=== PATIENT | female | born 1970 | race Caucasian/White ===

== ENCOUNTER → 2021-07-01 08:21 | Outpatient (CLI) | payer BC, SELFPAY ==
[2021-07-01 19:08] LABS: Alanine Aminotransferase 26 IU/L (<35); Albumin 4.3 g/dL (3.5-5.0); Albumin Globulin Ratio 1.4 (1.0-2.8); Alkaline Phosphatase 101 U/L (38-126); Aspartate Aminotransferase 28 IU/L (14-36); BUN Creatinine Ratio 24.2 (6-22); Bilirubin Total 0.5 mg/dL (0.2-1.3); Blood Urea Nitrogen 16 mg/dL (7-17); Calcium 9.9 mg/dL (8.4-10.2); Carbon Dioxide 26 mmol/L (22-32); Chloride 103 mmol/L (98-107); Cholesterol 248 mg/dL (140-199); Estimated Glomerular Filt Rate > 60.0 mL/min (>60); Globulin 3.1 g/dL (1.7-4.1); Glucose 100 mg/dL (70-100); HDL Cholesterol 73 mg/dL (40-60); HEMOLYSIS < 15 (0-50); LDL Cholesterol Calculated 137 mg/dL (<100); Potassium 4.6 mmol/L (3.4-5.1); Sodium 138 mmol/L (137-145); Total Protein 7.4 g/dL (6.3-8.2); Triglycerides 188 mg/dL (35-150)
[2021-07-01 19:20] LABS: Vitamin D 25 Hydroxy (D3) 19.2 ng/mL (30.0-100.0)
[2021-07-01 19:21] LABS: Follicle Stimulating Hormone 49.2 mIU/mL; Luteinizing Hormone 22.4 mIU/mL
[2021-07-01 19:36] LABS: TSH w/ Reflex to FT4 3.23 uIU/mL (0.47-4.68)
== END ==
PROVIDERS: PCP Physician Assistant Medical; Visit Provider Physician Assistant Medical
DX: D64.9 Anemia, unspecified (principal); M17.10 Unilateral primary osteoarthritis, unspecified knee; N95.1 Menopausal and female climacteric states; R73.9 Hyperglycemia, unspecified; R79.89 Other specified abnormal findings of blood chemistry; Z13.0 Encounter for screening for diseases of the blood and blood-forming organs and certain disorders involving the immune mechanism; Z13.228 Encounter for screening for other metabolic disorders; Z13.29 Encounter for screening for other suspected endocrine disorder
CPT/HCPCS: 80053; 80061; 82306; 83001; 83002; 84443

== ENCOUNTER → 2021-07-05 09:48 | Outpatient (CLI) | payer BC, SELFPAY ==
[2021-07-05 20:15] LABS: Add Manual Diff / Slide Review NO; Basophils Absolute Auto 0 /uL (0-100); Eosinophils Absolute Auto 100 /uL (0-450); Eosinophils Percent Auto 2.6 % (2-4); Hematocrit 42.3 % (36-46); Hemoglobin 14.2 g/dL (12.0-16.0); Lymphocytes Absolute Auto 1200 /uL (1100-4500); Lymphocytes Percent Auto 23.2 % (25-40); Mean Corpuscular HGB Conc 33.6 % (30-36); Mean Corpuscular Hemoglobin 29.9 PG (26-34); Mean Corpuscular Volume 88.9 fL (80-100); Monocytes Absolute Auto 500 /uL (0-900); Monocytes Percent Auto 9.7 % (3-14); Neutrophils Absolute Auto 3200 /uL (1500-7000); Neutrophils Percent Auto 63.5 % (50-75); Platelet Count 278 X10^3/uL (150-400); Red Blood Cell Count 4.76 X10^6/uL (4.0-5.2); Red Cell Distribution Width 12.8 % (11.6-14.8)
[2021-07-05 20:40] LABS: Hemoglobin A1C% w Est Avg Glu 5.4 % (4.0-6.0)
== END ==
PROVIDERS: PCP Physician Assistant Medical; Visit Provider Physician Assistant Medical
DX: D64.9 Anemia, unspecified (principal); M17.10 Unilateral primary osteoarthritis, unspecified knee; N95.1 Menopausal and female climacteric states; R73.9 Hyperglycemia, unspecified; R79.89 Other specified abnormal findings of blood chemistry; Z13.0 Encounter for screening for diseases of the blood and blood-forming organs and certain disorders involving the immune mechanism; Z13.228 Encounter for screening for other metabolic disorders; Z13.29 Encounter for screening for other suspected endocrine disorder
CPT/HCPCS: 83036; 85025

== ENCOUNTER → 2021-10-14 09:15 | Outpatient (CLI) | payer BC, SELFPAY ==
[2021-10-14 20:39] LABS: COVID19 - ORCAS (NP or Nasal) Negative (Negative)
== END ==
PROVIDERS: PCP Physician Assistant Medical; Referring Provider Family Medicine; Visit Provider Family Medicine
DX: Z20.822 Contact with and (suspected) exposure to COVID-19 (principal)
CPT/HCPCS: U0003

== ENCOUNTER → 2021-11-29 13:24 | Outpatient (CLI) | payer BC, SELFPAY ==
--- NOTE | 2021-11-29 | DI.MRI.S_ITS ---
PROCEDURE: MR ANKLE LT WO CON INDICATIONS: Pain in right ankle and joints of right foot TECHNIQUE: Noncontrast sagittal T1 spin echo and T2 fast spin echo with fat saturation, axial proton density fast spin echo and T2 fast spin echo with fat saturation, coronal T1 spin echo and T2 fast spin echo with fat saturation through the ankle/hindfoot. COMPARISON: None. FINDINGS: Image quality: Excellent. Bones and joints: No bone marrow contusions or fractures. 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 No osteochondral injuries of the talar dome. No pathologic joint effusions. Medial structures: The posterior tibialis, flexor digitorum longus, and flexor hallucis longus tendons are intact. The posterior tibial neurovascular bundle appears normal within the tarsal tunnel, without extrinsic mass effect. The deltoid and spring are intact. Lateral structures: The anterior talofibular, calcaneofibular, and posterior talofibular ligaments appear intact. More superiorly, the anterior and posterior tibiofibular ligaments appear intact, as is the intermalleolar ligament. The tibiofibular syndesmosis is normal in width at 2 mm or less. The peroneus longus and brevis tendons demonstrate normal location and morphology. Adjacent bony peroneal tubercle and retrotrochlear prominence are normal in size. The sinus tarsi demonstrates normal fatty signal, without edema, fibrosis, or cyst formation. Visualized sinus tarsi components (cervical ligament, interosseous talocalcaneal ligament, roots of the inferior extensor retinaculum) appear normal. Anterior structures: The tibialis anterior, extensor hallucis longus, and extensor digitorum longus tendons appear intact. Posterior and plantar structures: Achilles tendon is intact. Medial and lateral bands of the plantar fascia are of normal thickness. No abductor digiti quinti muscle atrophy to suggest Cherry neuropathy. IMPRESSION: 1. Non osseous calcaneonavicular coalition. Dictated by: Trenton Modi M.D. on 11/29/2021 at 14:44 Approved by: Trenton Modi M.D. on 11/29/2021 at 14:54
== END ==
PROVIDERS: PCP Physician Assistant Medical; Referring Provider Physician Assistant; Visit Provider Physician Assistant
DX: M25.571 Pain in right ankle and joints of right foot (principal)
CPT/HCPCS: 73721

== ENCOUNTER → 2022-04-01 08:08 | Outpatient (CLI) | payer BC, SELFPAY ==
[2022-04-01 20:34] LABS: COVID19 - ORCAS (NP or Nasal) Negative (Negative)
== END ==
PROVIDERS: PCP Physician Assistant Medical; Visit Provider Physician Assistant
DX: Z20.822 Contact with and (suspected) exposure to COVID-19 (principal)
CPT/HCPCS: U0003

== ENCOUNTER → 2022-08-21 13:25 | Outpatient (CLI) | payer BC, SELFPAY ==
[2022-08-21 19:28] LABS: Hemoglobin A1C% w Est Avg Glu 5.5 % (4.0-6.0)
[2022-08-21 19:30] LABS: BUN Creatinine Ratio 19.1 (6-22); Blood Urea Nitrogen 13 mg/dL (7-17); Calcium 9.8 mg/dL (8.4-10.2); Carbon Dioxide 27 mmol/L (22-32); Chloride 98 mmol/L (98-107); Cholesterol 199 mg/dL (140-199); Estimated Glomerular Filt Rate > 60 mL/min (>60); Glucose 87 mg/dL (70-100); HDL Cholesterol 74 mg/dL (40-60); HEMOLYSIS < 15 (0-50); LDL Cholesterol Calculated 100 mg/dL (<100); Sodium 136 mmol/L (137-145); Triglycerides 124 mg/dL (35-150)
[2022-08-21 19:52] LABS: Thyroid Stimulating Hormone 2.99 uIU/mL (0.47-4.68)
== END ==
PROVIDERS: PCP Physician Assistant Medical; Visit Provider Physician Assistant Medical
DX: R73.9 Hyperglycemia, unspecified (principal); Z13.0 Encounter for screening for diseases of the blood and blood-forming organs and certain disorders involving the immune mechanism; Z13.228 Encounter for screening for other metabolic disorders; Z13.29 Encounter for screening for other suspected endocrine disorder
CPT/HCPCS: 80048; 80061; 82570; 83036; 84443

== ENCOUNTER → 2022-09-05 06:58 | Outpatient (CLI) | payer BC, SELFPAY ==
[2022-09-05 19:41] LABS: COVID19 - ORCAS (NP or Nasal) Negative (Negative)
== END ==
PROVIDERS: PCP Physician Assistant Medical; Visit Provider Family Medicine
DX: Z20.822 Contact with and (suspected) exposure to COVID-19 (principal); Z01.812 Encounter for preprocedural laboratory examination
CPT/HCPCS: U0003

== ENCOUNTER 2022-09-07 11:36 | Emergency (ER) | payer BC, SELFPAY ==
[2022-09-07 11:52] VITALS: BP 153/82; PULSE 67; RESP 16; TEMP 36.4; O2SAT 100; BMI 35.5
--- NOTE | 2022-09-07 11:56 | DI.RAD.S_ITS ---
PROCEDURE: XR KNEE RT 3V INDICATIONS: fall down 4 steps TECHNIQUE: 3 views of the knee were acquired. COMPARISON: [facility], CR, XR ANKLE LT MIN 3V, 09/07/2022, 12:07. FINDINGS: Bones: No fractures or dislocations. No suspicious bony lesions. There is mild medial and lateral femorotibial joint space narrowing seen, with associated remodeling changes including subchondral sclerosis and osteophyte formation along the jointline. On the sunrise view, there is mild lateral patellofemoral joint space narrowing seen. Osteophyte formation can be seen along the margins of the patella. Soft tissues: There is a fppy-ti-ealuvkkb joint effusion. No suspicious soft tissue calcifications. IMPRESSION: Generalized degenerative changes are seen, without an acute bony abnormality seen by plain film. Jrnb-vm-rinvowil joint effusion. If it would be helpful for clinical management decision making, please consider a dedicated, scheduled knee MRI for further evaluation (assuming that there is no contraindication). Dictated by: Andrew Martin M.D. on 09/07/2022 at 11:40 Approved by: Andrew Martin M.D. on 09/07/2022 at 11:41
--- NOTE | 2022-09-07 11:56 | DI.RAD.S_ITS ---
PROCEDURE: XR ANKLE LT MIN 3V INDICATIONS: fall down 4 steps TECHNIQUE: 3 views of the ankle were acquired. COMPARISON: [facility], MR, MR ANKLE LT WO CON, 11/29/2021, 13:35. [facility], CR, XR KNEE RT 3V, 09/07/2022, 12:07. [facility], CR, XR ANKLE 3+ VIEWS LEFT, 07/04/2021, 12:55. FINDINGS: Bones: No fractures or dislocations. Ankle mortise is normally aligned. No suspicious bony lesions. The talar dome demonstrates no willy abnormality. Incidental note is made of a moderate enthesophyte at the Achilles insertion. Soft tissues: Generalized soft tissue swelling is seen. IMPRESSION: Soft tissue swelling is seen, without an acute bony abnormality seen by plain film. If there is point tenderness (or other clinical suspicion for a fracture not seen on these images) then a dedicated CT or a short-term followup plain film series could be considered for further evaluation, as clinically appropriate. Dictated by: Andrew Martin M.D. on 09/07/2022 at 11:41 Approved by: Andrew Martin M.D. on 09/07/2022 at 11:42
--- NOTE | 2022-09-07 16:13 | ED_ITS ---
HPI - Extremity Injury (Lower) <John Rushing PA-C - Last Filed: 09/07/22 16:26> General Chief Complaint: Extremity Injury, Lower Stated Complaint: fell down steps yesterday lt ankle rt knee Time Seen by Provider: 09/07/22 15:52 History of Present Illness HPI Narrative: Patient is a 52 old female presents to the emergency complaint right left ankle started after she fell down some stairs yesterday at about 3:00 p.m.. States she was walking towards the stairs and fell forward. She continues to left ankle pain. States she was taking Tylenol for the pain. Not taken ibuprofen or naproxen because she is on blood thinners. States the pain is worse pressure towards the pain is made better when she does not to the area does not talk. Describes pain as pain above at this. Denies any other concerns at this. Related Data Home Medications Medication Instructions Recorded Confirmed estradiol 0.05 mg/24 hr weekly 1 patch transdermal 2XW 07/11/22 07/11/22 transdermal patch Previous Rx's Medication Instructions Recorded sumatriptan 5 mg/actuation nasal 5 mg intranasal Q2-4H PRN migraine 10/09/21 spray (Imitrex) headache #6 ea escitalopram oxalate 10 mg tablet 10 mg PO DAILY 90 days #90 tabs 06/12/22 methocarbamol 750 mg tablet 750 mg PO Q8H #10 tabs 09/07/22 Allergies Allergy/AdvReac Type Severity Reaction Status Date / Time acetaminophen [From Vicodin] Allergy Severe itchy skin Verified 03/28/22 09:13 hydrocodone [From Vicodin] Allergy Severe itchy skin Verified 03/28/22 09:13 Penicillins Allergy Severe swollen Verified 03/28/22 09:13 Review of Systems <John Rushing PA-C - Last Filed: 09/07/22 16:26> Review of Systems Narrative: R.O.S.: General: No fever, chills or fatigue. Cardiovascular: No chest pain or palpitations Respiratory: No S.O.B. HEENT: No congestion, ear pain, rhinorrhea, sore throat or tinnitus Gastrointestinal: No nausea or vomiting : No urinary concerns Skin: No rash or associated abnormalities Musculoskeletal: Right knee left ankle pain? Neurological: Awake, alert and in not apparent distress. No Headaches, changes in vision or other related neurological concerns. Patient History <John Rushing PA-C - Last Filed: 09/07/22 16:26> Medical History (Updated 09/07/22 @ 16:22 by John Rushing PA-C) Breast cancer (~2004) Gastric ulcer (~2018) Irregular menstrual cycle Ovarian cyst Painful menstrual periods Surgical History (Updated 06/04/21 @ 16:24 by Katerina Jasso RN) Anesthesia History of hysterectomy (~11/2019) History of knee surgery History of mastectomy Family History (Updated 04/20/21 @ 20:49 by Myla Edwards) Mother Hypertension Hyperlipidemia Grandmother Cancer History of heart disease Social History Smoking Status: Never smoker Smoking Status: Never smoker Exam <John Rushing PA-C - Last Filed: 09/07/22 16:26> Narrative Exam Narrative: Physical Exam: ? General: normal appearance, well developed, well nourished, alert, and awake. Not in acute distress. ? Head: Normocephalic, no lesions. Chest: Lungs CTAB, no rales, rhonchi or wheezes. ?? Heart: RRR, no murmurs, rubs or gallops. Eyes: PERRLA, EOM's full, conjunctivae clear. ? Neuro: Physiological, no localizing findings, CN3-12 intact. ?? Extremities: Patient is tender to palpation medial anterior knee area. Patient also pain to palpation the medial area left ankle. Minimal swelling very erythema. Skin: Normal, no rashes, no lesions noted. ?? PSYCHIATRIC: The mood is good, no blunted affect. Speech is clear. Thought process is linear, thought content is appropriate. The voice is without significant inflection. Gastrointestinal: Soft; NT; ND; Pos BS with Neg. rebound tenderness. No scars or major deformities noted on Visual Inspection. Initial Vital Signs Initial Vital Signs: Vital Signs Temperature 97.5 F L 09/07/22 11:52 Pulse Rate 67 09/07/22 11:52 Respiratory Rate 16 09/07/22 11:52 Blood Pressure 153/82 H 09/07/22 11:52 Pulse Oximetry 100 09/07/22 11:52 Oxygen Delivery Method 09/07/22 11:52 <Alexandria Gross DO - Last Filed: 09/08/22 07:09> Initial Vital Signs Initial Vital Signs: Vital Signs Temperature 97.5 F L 09/07/22 11:52 Pulse Rate 67 09/07/22 11:52 Respiratory Rate 16 09/07/22 11:52 Blood Pressure 153/82 H 09/07/22 11:52 Pulse Oximetry 100 09/07/22 11:52 Oxygen Delivery Method 09/07/22 11:52 Course <John Rushing PA-C - Last Filed: 09/07/22 16:26> Orders Ordered: ED Orders 09/07/22 11:56 XR ankle LT min 3V Stat XR knee RT 3V Stat Vital Signs Vital signs: Vital Signs - 8 hr 09/07/22 11:52 Temperature 97.5 F L Pulse Rate 67 Respiratory Rate 16 Blood Pressure 153/82 H Pulse Oximetry 100 Oxygen Delivery Method Room Air <Alexandria Gross DO - Last Filed: 09/08/22 07:09> Orders Ordered: ED Orders 09/07/22 11:56 XR ankle LT min 3V Stat XR knee RT 3V Stat Vital Signs Vital signs: Vital Signs - 8 hr 09/07/22 11:52 Temperature 97.5 F L Pulse Rate 67 Respiratory Rate 16 Blood Pressure 153/82 H Pulse Oximetry 100 Oxygen Delivery Method Room Air MDM - Extremity Injury (Lower) <John Rushing PA-C - Last Filed: 09/07/22 16:26> Imaging Data Extremity x-ray #1: Radiologist's Impression: [address] [address] XRay Report Signed Patient: Rachel Alexander MR#: [id number] : 1970 Acct:[id number] Age/Sex: 52 / F Date of Service: 09/07/22 Loc: ED Accession Number: [id number] ?? Procedure: XR knee RT 3V Ordering Provider: Alexandria Gross D.O. PROCEDURE:? XR KNEE RT 3V ? INDICATIONS:? fall down 4 steps ? TECHNIQUE:? 3 views of the knee were acquired.? ? COMPARISON:? [facility], CR, XR ANKLE LT MIN 3V, 09/07/2022, 12:07. ? FINDINGS:? ? Bones:? No fractures or dislocations.? No suspicious bony lesions.? ? There is mild medial and lateral femorotibial joint space narrowing seen, with associated remodeling changes including subchondral sclerosis and osteophyte formation along the jointline.? On the sunrise view, there is mild lateral patellofemoral joint space narrowing seen. Osteophyte formation can be seen along the margins of the marina lla. ? Soft tissues:? There is a oxte-nd-rngwtzla joint effusion.? No suspicious soft tissue calcifications.? ? ? IMPRESSION:? Generalized degenerative changes are seen, without an acute bony abnormality seen by plain film. ? Qujz-uj-rzfwpfoq joint effusion.? ? If it would be helpful for clinical management decision making, please consider a dedicated, scheduled knee MRI for further evaluation (assuming that there is no contraindication).? Dictated by: Andrew Martin M.D. on 09/07/2022 at 11:40 ? ? Approved by: Andrew Martin M.D. on 09/07/2022 at 11:41 ? Extremity x-ray #2: Radiologist's Impression: [address] [address] XRay Report Signed Patient: Rachel Alexander MR#: [id number] : 1970 Acct:[id number] Age/Sex: 52 / F Date of Service: 09/07/22 Loc: ED Accession Number: [id number] ?? Procedure: XR ankle LT min 3V Ordering Provider: Alexandria Gross D.O. PROCEDURE:? XR ANKLE LT MIN 3V ? INDICATIONS:? fall down 4 steps ? TECHNIQUE:? 3 views of the ankle were acquired.? ? COMPARISON:? [facility], MR, MR ANKLE LT WO CON, 11/29/2021, 13:35.? [facility], CR, XR KNEE RT 3V, 09/07/2022, 12:07.? [facility], CR, XR ANKLE 3+ VIEWS LEFT, 07/04/2021, 12:55. ? FINDINGS:? ? Bones:? No fractures or dislocations.? Ankle mortise is normally aligned.? No suspicious bony lesions.? The talar dome demonstrates no willy abnormality.? Incidental note is made of a moderate enthesophyte at the Achilles insertion. ? Soft tissues:? Generalized soft tissue swelling is seen. ? ? IMPRESSION:? Soft tissue swelling is seen, without an acute bony abnormality seen by plain film. ? If there is point tenderness (or other clinical suspicion for a fracture not seen on these images) then a dedicated CT or a short-term followup plain film series could be considered for further evaluation, as clinically appropriate. ? Dictated by: Andrew Martin M.D. on 09/07/2022 at 11:41 ? ? Approved by: Andrew Martin M.D. on 09/07/2022 at 11:42 ? MDM Narrative Medical decision making narrative: Patient emergency complaint of continued pain in the right knee after she fell yesterday. X-ray was fracture the patient is still concerned possible ligamental injury. He was placed in patient ortho Discharge Plan Departure Patient Disposition: Home Clinical Impression: Ankle pain, left, Acute pain of right knee Instructions: DI for Knee Sprain, DI for Ankle Sprain Activity Restrictions/Additional Instructions: *You have been diagnosed with and right ankle sprains. Ordered medication to help with the pain and referral to orthopedics. The orthopedic provider. #[phone]. I suggested reach out to the orthopedic office early next week. I also suggest you continue to ice and elevate the extremities. [ ] *What to do: *Please continue to take your regular medications as directed. [ ] New medication prescriptions sent to your pharmacy: [ ] [x] New medication written as a paper prescription [ ] No new medications given *Please follow up with your primary care provider in 2-3 days, call for an appointment. Let them know you were seen in the Emergency Department and that we ask that you be seen in follow up. We will electronically transmit a record of today's note if your PCP is in our system *If you do not have a primary care provider please contact the [facility] Resource line at [phone]. They will ask some questions about your medical history and help get you set up with a doctor in the community. *Return to Emergency Department if you should have any new, worsening or concerning symptoms, such as [fever greater than 101 F, shaking chills, worsening pain, persistent vomiting or other bothersome symptoms] Prescriptions: New methocarbamol 750 mg tablet 750 mg PO Q8H Qty: 10 0RF No Action escitalopram oxalate 10 mg tablet 10 mg PO DAILY 90 Days Qty: 90 3RF estradiol 0.05 mg/24 hr patch weekly 1 patch transdermal 2XW sumatriptan [Imitrex] 5 mg/actuation spray,non-aerosol 5 mg intranasal Q2-4H PRN (Reason: migraine headache) Qty: 6 0RF Rx Instructions: into each nostril once; if headache remains, may repeat total dose once after at least 2 hours Referrals: Kristen Kelly MD [Physician] - Martha Stephens PA-C [Primary Care Provider] - Visit Report Forms: Patient Portal/API <Alexandria Grsos DO - Last Filed: 09/08/22 07:09> Cosign ED Attending Silviaature Attestation: I was immediately available in the department for consultation. Documentation has been reviewed.
[2022-09-07 17:05] VITALS: BP 150/80; PULSE 69; RESP 18; O2SAT 97
== END 2022-09-07 17:05 | disposition home or self-care (01) ==
PROVIDERS: Emergency Provider Physician Assistant; PCP Physician Assistant Medical
DX: M25.572 Pain in left ankle and joints of left foot (principal); M25.561 Pain in right knee; W10.9XXA Fall (on) (from) unspecified stairs and steps, initial encounter
CPT/HCPCS: 73562; 73610; 99282; 99283

== ENCOUNTER → 2022-09-13 14:52 | Outpatient (CLI) | payer BC, SELFPAY ==
--- NOTE | 2022-09-13 14:54 | DI.MRI.S_ITS ---
PROCEDURE: MR KNEE RT WO CON INDICATIONS: Sprain of unspecified site of right knee, initial TECHNIQUE: Noncontrast sagittal PD fast spin echo and T2 fast spin echo with fat saturation, sagittal 3-D FLASH with fat saturation; coronal T1 spin echo and PD fast spin echo with fat saturation, and axial PD fast spin echo with fat saturation through the knee. COMPARISON: None. FINDINGS: Image quality: Excellent. Menisci: Oblique tear involving posterior horn of medial meniscus is seen extending to inferior articulating surface. Complex tear involving anterior horn of lateral meniscus is also noted extending to both superior and inferior articulating surfaces. Peripheral displacement of medial and lateral menisci bowing adjacent collateral ligaments is seen. The meniscal root ligaments appear intact. Cruciate ligaments: Myxoid degenerative changes involving anterior cruciate ligament is seen. No full-thickness ACL rupture. PCL is intact. Medial structures: Low to moderate grade MCL sprain/partial-thickness tear is noted. The posterior oblique ligament, semimembranosus tendon insertions, oblique popliteal ligament, and meniscocapsular junction appear intact. Visualized portions of the pes anserinus tendons appear normal. No abnormal bursal fluid. Lateral structures: Moderate grade lateral collateral ligament sprain/partial-thickness tear near its femoral insertion is seen. The long and short heads of the biceps femoris tendon appear intact. The popliteus tendon appears normal; the popliteofibular ligament appears intact. Iliotibial band appears normal. Anterior structures: The quadriceps and patellar tendons appear intact. Patellar alignment is normal. No femoral trochlear dysplasia or ventral trochlear prominence. No edema in the infrapatellar fat pad. Bones and cartilage: No bone marrow contusions or fractures. Moderate tricompartmental osteoarthritis and chondromalacia is noted with joint space narrowing, subchondral sclerosis and marginal osteophyte formation. Joint space: There is moderate joint effusion, no gross loose bodies. No Petty's cyst. Normal appearing synovial plicae are incidentally noted. IMPRESSION: 1. Complex tear involving anterior horn of lateral meniscus extending to both superior and inferior articulating surfaces. Oblique tear involving posterior horn of medial meniscus extending to inferior articulating surface. 2. Myxoid degenerative changes in anterior cruciate ligament, no full-thickness ACL rupture. PCL is intact. 3. Moderate MCL and LCL sprain/partial-thickness tear. 4. Moderate tricompartmental osteoarthritis and chondromalacia. No fracture or dislocation. Moderate joint effusion, no gross loose bodies. Dictated by: Bart Atkins M.D. on 09/15/2022 at 8:34 Approved by: Bart Atkins M.D. on 09/15/2022 at 8:38
== END ==
PROVIDERS: PCP Physician Assistant Medical; Referring Provider Physician Assistant; Visit Provider Physician Assistant
DX: S83.271A Complex tear of lateral meniscus, current injury, right knee, initial encounter (principal); S83.241A Other tear of medial meniscus, current injury, right knee, initial encounter; S83.411A Sprain of medial collateral ligament of right knee, initial encounter; S83.421A Sprain of lateral collateral ligament of right knee, initial encounter; M17.11 Unilateral primary osteoarthritis, right knee; M94.261 Chondromalacia, right knee; M25.461 Effusion, right knee; X58.XXXA Exposure to other specified factors, initial encounter
CPT/HCPCS: 73721

== ENCOUNTER → 2022-10-24 06:54 | Outpatient (CLI) | payer BC, SELFPAY ==
[2022-10-24 19:10] LABS: COVID19 - ORCAS (NP or Nasal) Negative (Negative)
== END ==
PROVIDERS: PCP Physician Assistant Medical; Visit Provider Family Medicine
DX: Z20.822 Contact with and (suspected) exposure to COVID-19 (principal); Z01.812 Encounter for preprocedural laboratory examination
CPT/HCPCS: U0003

== ENCOUNTER 2022-10-27 09:30 | Day surgery (SDC) | payer BC, SELFPAY ==
[2022-10-27] MEDS: SODIUM CHLORIDE 0.9% 1,000 ML 84 ML IV (09:56)
[2022-10-27 10:06] VITALS: BP 146/94; PULSE 90; RESP 18; TEMP 36.6; O2SAT 95; BMI 34.8
--- NOTE | 2022-10-27 10:19 | PM.HP.1 ---
History of Present Illness History of Present Illness Date Patient Seen: 10/27/22 Time Patient Seen: 10:19 Chief complaint: Colonoscopy Narrative: Here for screening colonoscopy. Asymptomatic. Patient History Medical History Breast cancer (~2004) Gastric ulcer (~2018) Irregular menstrual cycle Ovarian cyst Painful menstrual periods Surgical History Anesthesia History of hysterectomy (~11/2019) History of knee surgery History of mastectomy Family & Social History Family History Mother Hypertension Hyperlipidemia Grandmother Cancer History of heart disease Social History: household members spouse Tobacco & Substance use: Smoking Status Never smoker alcohol intake current alcohol intake frequency a few times a month Substance Use Type marijuana Meds Home Medications and Allergies Home Medications Medication Instructions Recorded Confirmed Type sumatriptan 5 mg/actuation nasal 5 mg intranasal Q2-4H PRN migraine 10/09/21 09/25/22 Rx spray (Imitrex) headache #6 ea escitalopram oxalate 10 mg tablet 10 mg PO DAILY 90 days #90 tabs 06/12/22 09/25/22 Rx estradiol 0.05 mg/24 hr weekly 1 patch transdermal 2XW 07/11/22 09/25/22 History transdermal patch methocarbamol 750 mg tablet 750 mg PO Q8H #10 tabs 09/07/22 09/25/22 Rx tramadol 50 mg tablet 50 mg PO DAILY #14 tabs 09/30/22 Rx Allergies Allergy/AdvReac Type Severity Reaction Status Date / Time Penicillins Allergy Severe swollen Verified 10/27/22 09:54 acetaminophen [From Vicodin] Allergy Mild itchy skin Verified 10/27/22 09:54 hydrocodone [From Vicodin] Allergy Mild itchy skin Verified 10/27/22 09:54 Review of Systems Review of Systems ROS: Yes All systems reviewed with the patient and are negative except as otherwise documented Exam Vital Signs (past 8 hours): - 10/27/22 10:06 Temperature 97.8 F Pulse Rate 90 Respiratory Rate 18 Blood Pressure 146/94 H Pulse Oximetry 95 Oxygen Delivery Method Room Air Oxygen Delivery Method Room Air Const General: cooperative HENMT Head: normal to inspection Eyes General: appearance normal, both eyes and all related structures Neck Neck: normal visual inspection Chest Chest: normal inspection of the chest Resp Effort & Inspection: normal respiratory effort Cardio Rate: regular rate GI Inspection: normal to inspection Skin General: no rashes or lesions noted Neuro General: patient alert and patient awake Extrem General: normal to inspection and no pedal edema Psych Appearance: grossly normal Assessment & Plan Assessment & Plan narrative: 52-year-old female here for colon cancer screening. Colonoscopy is pursued today. Time Spent With Patient Critical Care time: I spent a total of [] minutes of critical care time on this patient's care today; this time is exclusive of procedural time.
--- NOTE | 2022-10-27 10:20 | PM.PREOP ---
Pre-operative Note COVID-19 COVID-19 status: Negative Result date/Date tested (Pos, Neg/Pending): 10/24/22 Criteria for continued procedure: Possibility delay results in more complex future surgery or treatment Interval Note History & Physical reviewed/Exam performed by Physician: Yes Changes to H&P: No ASA Class (for procedural sedation): II
[2022-10-27 11:30] VITALS: BP 122/74; PULSE 75; RESP 13; TEMP 36.7; O2SAT 98
--- NOTE | 2022-10-27 11:32 | P.OP.COLON_ITS ---
Operative Date/Time/Diagnoses Date of procedure: 10/27/22 Time of procedure: 11:32 Pre-op diagnosis: Here for colon cancer screening Post-op diagnosis: same Procedure & Clinicians Study performed: Colonoscopy Same procedure as scheduled: Yes Indications: Colon cancer screening Surgeon: Too Box Procedure Notes SCOAP/Timeout: Done Procedure in detail: After the risks and benefits were explained, written and verbal informed consent was obtained. The patient was brought into the procedure room and placed into the left lateral decubitus position. Please see nurse rn rehabilitation notes for sedation details. Digital rectal examination was accomplished. The scope was introduced into the patient and advanced under direct visualization to the cecum as identified by the appendiceal orifice and ileocecal valve. The scope was slowly withdrawn to carefully examine the mucosa for any defects or lesions. Comprehensive imaging was accomplished throughout the rectum including the dentate line. The colon was decompressed, the scope was then removed from the patient who tolerated the procedure well. Adult colonoscope Bowel prep adequate Scope withdrawal time: 7 minutes Sedation minutes: 20 Specimen(s): none sent Complications: none Impression: Patient had a fairly lengthy colon with dtfr-kh-wmoialmp tortuosity but otherwise the exam was within normal limits. I did not appreciate any significant polyps nor mass lesions throughout. No inflammation. Mild internal hemorrhoids grade 1 to grade 2. Endoscopic diagnosis 1. Grade 1 to grade 2 hemorrhoids 2. Otherwise visually unremarkable colonoscopy Post-procedure Plan for aftercare: Repeat colonoscopy for colon cancer screening 10 years; sooner should symptoms warrant an earlier exam. Disposition: PACU
[2022-10-27 11:35] VITALS: BP 128/79; PULSE 71; RESP 11; O2SAT 98
[2022-10-27 11:40] VITALS: BP 136/85; PULSE 73; RESP 18; O2SAT 98
[2022-10-27 11:48] VITALS: BP 131/80; PULSE 71; RESP 20; O2SAT 97
== END 2022-10-27 12:14 | disposition home or self-care (01) ==
PROVIDERS: Internal Medicine Gastroenterology; PCP Physician Assistant Medical; Referring Provider Internal Medicine; Visit Provider Internal Medicine
PROC: 0DJD8ZZ Inspection of Lower Intestinal Tract, Via Natural or Artificial Opening Endoscopic (ICD-10-PCS; CPT 45378; principal; 2022-10-27 10:30)
DX: Z12.11 Encounter for screening for malignant neoplasm of colon (principal); K64.0 First degree hemorrhoids
CPT/HCPCS: 45378; J2704

== ENCOUNTER → 2022-11-04 14:58 | Outpatient (CLI) | payer BC, SELFPAY ==
[2022-11-04 15:34] LABS: Add Manual Diff / Slide Review NO; Basophils Absolute Auto 100 /uL (0-100); Eosinophils Absolute Auto 200 /uL (0-450); Eosinophils Percent Auto 2.8 % (2-4); Hemoglobin 14.8 g/dL (12.0-16.0); Lymphocytes Absolute Auto 1200 /uL (1100-4500); Lymphocytes Percent Auto 20.7 % (25-40); Mean Corpuscular HGB Conc 34.4 % (30-36); Mean Corpuscular Hemoglobin 29.4 PG (26-34); Mean Corpuscular Volume 85.5 fL (80-100); Monocytes Absolute Auto 400 /uL (0-900); Monocytes Percent Auto 6.7 % (3-14); Neutrophils Absolute Auto 4100 /uL (1500-7000); Neutrophils Percent Auto 68.8 % (50-75); Platelet Count 330 X10^3/uL (150-400); Red Blood Cell Count 5.03 X10^6/uL (4.0-5.2); Red Cell Distribution Width 12.9 % (11.6-14.8)
[2022-11-04 15:54] LABS: BUN Creatinine Ratio 19.1 (6-22); Blood Urea Nitrogen 13 mg/dL (7-17); Calcium 9.9 mg/dL (8.4-10.2); Carbon Dioxide 29 mmol/L (22-32); Chloride 98 mmol/L (98-107); Estimated Glomerular Filt Rate > 60 mL/min (>60); Glucose 76 mg/dL (70-100); HEMOLYSIS < 15 (0-50); Potassium 3.6 mmol/L (3.4-5.1); Sodium 139 mmol/L (137-145)
== END ==
PROVIDERS: PCP Physician Assistant Medical; Referring Provider Orthopaedic Surgery; Visit Provider Orthopaedic Surgery
DX: Z01.818 Encounter for other preprocedural examination (principal); M25.561 Pain in right knee; Z01.812 Encounter for preprocedural laboratory examination
CPT/HCPCS: 36415; 80048; 85025; 93005; 93010

== ENCOUNTER → 2022-11-25 07:59 | Outpatient (CLI) | payer BC, SELFPAY ==
[2022-11-25 20:58] LABS: COVID19 - ORCAS (NP or Nasal) Negative (Negative)
== END ==
PROVIDERS: PCP Physician Assistant Medical; Visit Provider Physician Assistant Medical
DX: Z20.822 Contact with and (suspected) exposure to COVID-19 (principal); Z01.812 Encounter for preprocedural laboratory examination
CPT/HCPCS: U0003

== ENCOUNTER 2022-11-27 14:00 | Observation (INO) | payer BC, SELFPAY ==
[2022-11-13 09:33] VITALS: BMI 33.9
[2022-11-26] VITALS (23 sets, daily range): BP systolic 117–170; BP diastolic 72–118; PULSE 74–87; RESP 8–20; TEMP 35.9–36.7; O2SAT 92–99; BMI 33.9
--- NOTE | 2022-11-26 08:01 | DI.RAD.S_ITS ---
PROCEDURE: XR KNEE RT 1TO2V INDICATIONS: prosthesis placement TECHNIQUE: 2 view(s) of the knee acquired. COMPARISON: [facility], , XR KNEE RT 3V, 09/07/2022, 12:07. FINDINGS: Bones: Patient is status post knee joint arthroplasty. Hardware components are in expected positions. Visualized bony structures are intact. Soft tissues: Overlying postoperative changes are noted. IMPRESSION: Expected appearances status post right knee arthroplasty. Dictated by: Katharina Hernandez M.D. on 11/26/2022 at 13:34 Approved by: Katharina Hernandez M.D. on 11/26/2022 at 13:35
[2022-11-26] MEDS: ACETAMINOPHEN 325 MG TABLET 975 MG PO (09:50)
[2022-11-26] MEDS: CELECOXIB 200 MG CAPSULE PO (09:51)
[2022-11-26] MEDS: PREGABALIN 75 MG CAPSULE PO (09:52)
[2022-11-26] MEDS: LACTATED RINGERS 1,000 ML 42 ML IV (09:52)
--- NOTE | 2022-11-26 10:26 | PM.PREOP ---
Pre-operative Note COVID-19 COVID-19 status: Negative Result date/Date tested (Pos, Neg/Pending): 11/25/22 Interval Note History & Physical reviewed/Exam performed by Physician: Yes Changes to H&P: No
[2022-11-26] MEDS: CEFAZOLIN 2 GM/100 ML PREMIX 100 ML IV ×2 (11:06→19:26)
[2022-11-26] MEDS: TRANEXAMIC ACID 1,000 MG VIAL 1000 MG INJ ×2 (11:26→12:22)
[2022-11-26] MEDS: BUPIVACAINE 0.5% W/ EPI (PF) 30 ML VIAL INJ (11:43)
[2022-11-26] MEDS: BUPIVACAINE LIPOSOME 266 MG/20 ML VIAL INJ (11:44)
[2022-11-26] MEDS: MORPHINE 4 MG/ML INJ INJ (11:44)
--- NOTE | 2022-11-26 11:50 | SUR.OPER ---
Supine on padded OR bed. Pillow under head, arms secured on padded armboards <90 degree abduction. Safety belt across torso. Non-operative leg secured with tape over blanket over lower leg. Operative leg secured in [employer] positioner.
--- NOTE | 2022-11-26 12:53 | P.OP_ITS ---
Operative Date/Time/Diagnoses Date of procedure: 11/26/22 Time of procedure: 12:53 Pre-op diagnosis: Right knee osteoarthritis Post-op diagnosis: same Procedure & Clinicians Procedure: Right total knee replacement Same procedure as scheduled: Yes Indications: The patient has had progressively worsening right knee pain with radiographic changes consistent with arthritis. Non-operative management has failed and the patient has requested total knee replacement. The risks, benefits and alternatives to surgery were discussed with the patient prior to proceeding. Risks discussed included, but were not limited to, failure to relieve pain, stiffness, infection, nerve damage, deep venous thrombosis, pulmonary embolism, stroke, coma, heart attack, permanent paralysis and , as well as the potential need for eventual revision of the prosthetic. Surgeon: Saurav Marshall Horticultural Farmworker: Sina Camilo Click Yes if Unassisted: No Anesthesia Type: General, Spinal and Local Operative Notes Findings: Severe lateral osteoarthritis with moderate patellofemoral change and relative sparing of the medial compartment Closure Type: primary Specimen(s): none sent Prosthetic devices, grafts, tissues, transplants, or devices: Implants used in this procedure were manufactured by the [employer] and included the BCS II Journey total knee replacement with a size 6 right Oxinium femoral component, size 4 right non porous tibial base plate, a 9 mm cross-linked tibial insert and a 32 mm oval Alyssa II patella. Applied: implant(s) Estimated Blood Loss (mL): 25 Blood products transfused: none Tourniquet time (min): 49 Procedure in detail: The patient was seen in the pre-operative area, where the patient identified the right knee as the operative site and this was marked with my initials. The patient received pre-operative antibiotics, and was taken to the operating room and placed on the operative table in the supine position. After satisfactory anesthesia, a time lock expert out was performed. The right leg was encircled with a tourniquet about the proximal thigh, and the leg was prepared from the toes to the tourniquet with ChloroPrep in the usual fashion and draped through sterile drapes. The leg was elevated and exsanguinated with Eschmark bandage and the tourniquet inflated to 250 mmHg pressure. The knee was approached through an approximately 18 cm incision centered over the patella and carried into the knee through a medial parapatellar arthrotomy. The anterior osteophytes and soft tissues were removed. The rotational landmarks of [place]'s line and the transepicondylar axis were marked on the femur with electrocautery, and intramedullary guide holes for the femur and tibia were created. The distal femoral cut was made in 6 degrees of valgus using the intramedullary guide at the primary cut setting. The proximal tibial cut was then made using the intramedullary guide, taking 7 mm of bone off the less involved medial side. The extension gap was checked and the rotation of the femoral component confirmed with the gap balancing system. The anterior, posterior and chamfer cuts were then made. The posterior osteophytes and soft tissues were then removed. The posterior capsule was injected with part of a mixture of 60 ml 0.25% Marcaine mixed with 20 ml Exparel and 4 mg of morphine for post-operative pain control. The remainder of this mixture was injected into the capsule and subcutaneous tissues during cement curing. The tibia was prepared with the rotation set by an extra medullary guide. Trial tibial and femoral components were then placed and the intercondylar notch cut through the femoral trial. Range of motion was 0-135 degrees, with good stability throughout the range. The patella was then cut to accommodate the patellar prosthetic. There was no need for a lateral release. The trials were then removed, and the femoral hole plugged with a bone plug. The bone was prepared with pulsatile lavage, and dried with a sponge. Cement was applied and the final prosthetics placed. Excess cement was removed during and after cement curing. After confirming there was no extruded cement posteriorly, the final tibial insert was placed. The knee was copiously irrigated and the tourniquet deflated. Hemostasis was obtained. The capsule was closed with interrupted # 2 polyester suture. The subcutaneous layer was closed with 3-0 Vicryl, and the skin with a running 3-0 V-Lock suture and Dermabond. An Aquacel Ag dressing was applied and the patient was taken to recovery having tolerated the procedure well. The services of a skilled investment sales assistant were required during this procedure for positioning, exposure and for retraction to protect vital structures. Without the presence of Mr. Camilo the surgery could not have been completed in a safe, expedient fashion. Complications: none Post-operative Condition: stable Disposition: PACU Plan for aftercare: The patient will be maintained on a standard total knee replacement protocol with weight bearing as tolerated. The patient will receive aspirin and sequential compression devices for DVT prophylaxis. The patient will be discharged home when safe for the home environment.
[2022-11-26] MEDS: OXYCODONE IR 5 MG TABLET PO ×2 (13:26→14:06)
[2022-11-26] MEDS: HYDROMORPHONE 2 MG INJ IV ×3 (13:54→14:09)
--- NOTE | 2022-11-26 13:57 | SUR.PHASEI ---
[id number] RADHA Harris received report from RADHA Brantley
--- NOTE | 2022-11-26 14:26 | SUR.PHASEI ---
1420 Report given to RADHA Brantley from RADHA Harris
[2022-11-26] MEDS: LACTATED RINGERS 1,000 ML 100 ML IV (15:17)
[2022-11-26] MEDS: PANTOPRAZOLE DR 20 MG TABLET PO (16:00)
[2022-11-26] MEDS: hydrOXYzine pamoate 25 MG CAPSULE PO (16:00)
--- NOTE | 2022-11-26 16:33 | PC.NURSE ---
Addendum entered by Ciera Loza R.N. 11/26/22 19:53: 1600 - Pt out of bed to bathroom. Difficulty following directions regarding mobility. Pt trying to stand and hop, asking staff to hold her leg. Multiple times need to ask the patient to stop, listen to directions and suggestions for safe mobility. Once standing patient was able to go into the bathroom. Putting all weight in her UE and hopping. Attempted to direct patient to at minimum toe-touch weight baring, but she report that it was to painful. On toilet very tearful, sobbing, but was able to void. Transition back to bed was much more successful. Pain control issues persist. Original Note: Pt to the floor at 1450. Rating pain 6 of 10. Medication given by PACU at 1425. Drsg CDI, PPP. Attempts to position for comfort. Pt grimacing, tearful, bracing against bed rails. Offered scheduled Ibuprofen, pt states she has been told not to take r/t hx of ulcers. Pt reports taking Meloxicam, not on home med list. Call placed to PA. Orders to d/c ibuprofen and order Meloxicam per home medication order. 1530 - Rating pain 5 of 10. Visteral given. Ice packs replaced. Pt tearful. Discussed pain goal. Pt states I can't do numbers right now. offered to provide IV dilaudid for breakthrough pain, FLACC greater than 7. Pt declined, I am going to wait for the Visteral to kick in. Pt requesting distraction techniques. Discussed last void, and urination following spinal anesthesia. Pt denies urge reports last void at approximately 0800. FURNITURE SPRAYER to bladder scan. IS education provided. Pain medication education written on white board per patient request.
[2022-11-26] MEDS: ESTRADIOL 0.05 MG/24 HR 1 EACH TOP (16:47)
[2022-11-26] MEDS: HYDROMORPHONE 2 MG TABLET PO (17:33)
[2022-11-26] MEDS: ACETAMINOPHEN 325 MG TABLET 650 MG PO ×2 (17:33→23:42)
[2022-11-26] MEDS: OXYCODONE IR 10 MG TABLET PO ×2 (19:33→22:27)
[2022-11-26] MEDS: ASPIRIN EC 81 MG TABLET PO (20:34)
[2022-11-26] MEDS: DOCUSATE 100 MG CAPSULE PO (20:34)
[2022-11-27] MEDS: LACTATED RINGERS 1,000 ML 100 ML IV (01:09)
[2022-11-27] MEDS: OXYCODONE IR 10 MG TABLET PO ×6 (01:30→21:47)
[2022-11-27] MEDS: CEFAZOLIN 2 GM/100 ML PREMIX 100 ML IV (02:27)
[2022-11-27] MEDS: HYDROMORPHONE 2 MG TABLET PO ×2 (03:05→10:39)
[2022-11-27 04:35] VITALS: BP 139/79; PULSE 78; RESP 18; TEMP 36.3; O2SAT 96
--- NOTE | 2022-11-27 04:50 | PC.NURSE ---
Pt is AxOx4, needs 2 person assistance and c/o pain and recieved PRN Oxy 10mg few times and PO Dilaudid 2 mg once. She walked to the bathroom with 2 person assistance and voided well. No other changes.
[2022-11-27] MEDS: PANTOPRAZOLE DR 20 MG TABLET PO (05:23)
[2022-11-27] MEDS: ACETAMINOPHEN 325 MG TABLET 650 MG PO ×4 (05:23→23:26)
[2022-11-27 05:35] LABS: Hematocrit 37.1 % (36-46); Hemoglobin 12.6 g/dL (12.0-16.0)
--- NOTE | 2022-11-27 07:57 | PM.DS.1 ---
History of Present Illness History of Present Illness Date Patient Seen: 11/27/22 Time Patient Seen: 07:57 Chief complaint: Right TKA Narrative: The history and physical are contained in the chart previously completed note. Please refer to that note for this information. Discharge Providers Provider Date of admission: November 26, 2022 Discharge Date: 11/27/22 Primary care physician: Martha Stephens PA-C Consults: 11/26/22 15:05 Consult to Discharge Planning Routine Comment: Consult to Physical Therapy Evaluate & Treat Comment: Physician Instructions: postop TKA protocol Discharge provider: Saurav Marshall MD Summary Hospital Course Discharge Diagnosis: Right knee osteoarthritis Hospital Course: The patient was admitted to the hospital and taken directly to the operating room on November 26, 2022. She underwent a right total knee replacement without complications. On postoperative day 1 she would had mild pain control issues overnight but was medically stable and was felt to be ready for discharge. Status at Discharge Cognitive/behavioral status at discharge: at baseline, oriented Functional status at discharge: uses cane/walker Overall status at discharge: patient is progressing back to baseline Time Spent with Patient Time spent: Less than 30 minutes Exam Vital Signs (past 8 hours): - 11/27/22 04:35 Temperature 97.4 F L Pulse Rate 78 Respiratory Rate 18 Blood Pressure 139/79 Pulse Oximetry 96 Oxygen Flow Rate 0 Oxygen Delivery Method Room Air Oxygen Flow Rate 0 Narrative Exam Narrative: Right knee wound is dressed with no drainage on the bandage. Calf is soft. Light touch and motion are intact in the right lower extremity. Objective Labs Result Diagrams: 11/27/22 04:59 Labs: Laboratory Results - last 24 hr 11/27/22 04:59 Hgb 12.6 Hct 37.1 PFSH Medical History Breast cancer (~2004) Gastric ulcer (~2018) Irregular menstrual cycle Ovarian cyst Painful menstrual periods Surgical History Anesthesia History of bilateral oophorectomy (2020) History of hysterectomy (~11/2019) History of mastectomy (2011) Hx of arthroscopy of left knee Hx of arthroscopy of right knee Hx of breast biopsy Hx of colonoscopy Family History Mother Hypertension Hyperlipidemia Grandmother Cancer History of heart disease Social History household members: spouse Smoking Status: Former smoker alcohol intake: current Discharge Assessment & Plan Assessment and Plan Assessment: Stable postoperative day 1 status post right total knee replacement. Plan of Treatment: Discharge to home with follow-up in 10-14 days. Discharge prescriptions have been sent in for oxycodone and hydroxyzine. She is to continue the Tylenol and meloxicam she uses at baseline for additional pain control. She is also to use aspirin 81 mg p.o. b.i.d. for DVT prophylaxis. Discharge Plan Discharge Plan Patient Disposition: Home Discharge orders & Medications Discharge Orders: Discharge (Order); Ordered 11/27/22 Ordered By: Saurav Marshall Prescriptions: New aspirin 81 mg Tablet,Delayed Release (Dr/Ec) 81 mg PO BID Qty: 84 0RF oxycodone 5 mg Tablet 5 mg PO Q3HR PRN (Reason: Pain, Moderate (4-6)) Qty: 40 0RF hydroxyzine pamoate 25 mg Capsule 25 mg PO Q6H PRN (Reason: Nausea And Vomiting) Qty: 30 0RF Continued escitalopram oxalate 10 mg tablet 10 mg PO DAILY 90 Days Qty: 90 3RF acetaminophen 650 mg Tablet Extended Release 1,300 mg PO Q12H PRN (Reason: Pain) meloxicam 15 mg tablet 15 mg PO DAILY PRN (Reason: Pain (Scale Score 1-3)) omeprazole 20 mg capsule,delayed release(DR/EC) 20 mg PO DAILY Label Comments: TAKE ONE CAPSULE BY MOUTH EVERY DAY 30 MINUTES TO 1 HOUR BEFORE A MEAL NEEDED TO PROTECT STOMACH semaglutide (weight loss) 0.5 mg/0.5 mL Pen Injector 0.5 mg SUBCUT QWEEK Rx Instructions: administer weeks 5 through 8 of therapy estradiol 0.05 mg/24 hr patch weekly 1 patch transdermal 2XW Label Comments: pt took off today for surgery sumatriptan [Imitrex] 5 mg/actuation spray,non-aerosol 5 mg intranasal Q2-4H PRN (Reason: migraine headache) Qty: 6 0RF Rx Instructions: into each nostril once; if headache remains, may repeat total dose once after at least 2 hours Discontinued tramadol 50 mg tablet 50 mg PO DAILY Qty: 14 0RF Rx Instructions: 1-2 po hs prn acute knee pain Follow up/Referrals: Saurav Marshall MD [Physician] - As previously scheduled (Follow up w/ Dr Marshall on 12/09/2022 @ 1:00 at [facility] in [place].) Martha Stephens PAJuan JC [Primary Care Provider] - Diet/Activity/Treatments Diet: Diet as Tolerated and Regular Activity: Walk frequently! You may bear weight as tolerated on your right leg. Cold/Heat Therapy: Ice to knee as needed for pain. Skin/Wound/Dressing Care Report to your healthcare provider any signs of infection, such as:: chills, fever, night sweats, increased pain, unusual drainage and unusual redness Dressing: May remove JUAN A wrap and shower on 11/29/2022. Leave Aquacel dressing in place until follow up in office. No bathing or otherwise soaking incision. Call the office if the Aquacel dressing becomes saturated inside. Visit Report/Discharge Packet Instructions: DI for Knee Replacement Stand Alone Forms: Surgery Discharge Discharge Data Primary Care Provider: aMrtha Stephens Attending Provider: Saurav Marshall Quality VTE Deep Vein Thrombosis/Pulmonary Embolism Present on Admission: No
[2022-11-27 08:20] VITALS: BP 132/78; PULSE 80; RESP 16; TEMP 36.7; O2SAT 95
[2022-11-27] MEDS: ASPIRIN EC 81 MG TABLET PO ×2 (08:40→20:40)
[2022-11-27] MEDS: MELOXICAM 7.5 MG TABLET 15 MG PO (08:40)
[2022-11-27] MEDS: DOCUSATE 100 MG CAPSULE PO ×2 (08:43→20:40)
[2022-11-27] MEDS: ESCITALOPRAM 10 MG TABLET PO (08:48)
--- NOTE | 2022-11-27 08:53 | CM.DANOTE ---
Initial DCP Assessment Note Pt is an 52 yo female, resident of [facility], now POD#1 status post right total knee replacement by Dr Marshall PCP: Lorelei Stephens Payer: out of state [employer] Reviewed chart, pt has planned for DC home w/family to assist, outpatient PT. DC order and summary have been placed by Dr Marshall this morning. Now awaiting rec from PT to ensure patient safe for home environment. No barriers identified at this time to patient's safe discharge home w/family to assist; close outpatient f/u recommended. Awaiting PT recommendation and following closely for any DC needs or concerns that may arise GIOVANNY Reynolds Discharge Planning/Care Management CM Discharge Assessment Start: 11/27/22 08:49 Freq: Status: Active Protocol: Document 11/27/22 08:49 DECLAN (Rec: 11/27/22 08:52 DECLAN [id number]) Discharge Planning Assessment Assigned Freight Car Repairer GIOVANNY Navarro DPOA/Assigned Designee Name Antwan Yeager, spouse Contact Information [phone] Advance Directives? No Advance Directives on File No History Provided By Medical Record Prior Living Arrangements House Household Members spouse Type of transporation used prior to Drives own vehicle admit Independent with ADL's Yes Is patient alert and oriented? Yes Patient/Family Preference OP PT Therapy Barriers to Discharge No Comment Thus far, it appears patient is a good candidate for returnhome w/her family to assist Discharge Plan Home Transportation Arrangement Family Referrals Initiated None needed Additional Comment Will follow closely in case DC needs or concerns arise
[2022-11-27] MEDS: hydrOXYzine pamoate 25 MG CAPSULE PO ×3 (09:00→22:34)
--- NOTE | 2022-11-27 09:55 | PT.IIE ---
Current Diagnoses Unilateral primary osteoarthritis, right knee (11/26/22) Surgery Performed Operation Date: 11/26/22 10:45 Actual Procedures p Total Knee Arthroplasty(Right) - Saurav Marshall MD Surgical History (Last Reviewed 11/26/22 @ 09:45 by Kaitlynn Yancey, RN) Anesthesia History of bilateral oophorectomy (2020) History of hysterectomy (~11/2019) History of mastectomy (2011) Hx of arthroscopy of left knee Hx of arthroscopy of right knee Hx of breast biopsy Hx of colonoscopy Medical History (Last Reviewed 11/26/22 @ 09:45 by Kaitlynn Yancey, RADHA) Breast cancer (~2004) Gastric ulcer (~2018) Irregular menstrual cycle Ovarian cyst Painful menstrual periods Physical Therapy Inpatient Evaluation/Re-Eval M1 PT/OT-IP Prior Functional Status Start: 11/27/22 13:00 Freq: NEEDED Status: Active Protocol: Document 11/27/22 09:55 AB (Rec: 11/27/22 13:20 AB [id number]) Medical Review Prior Functional Status Medical History Reviewed Yes Communication able to make needs known Mobility and Gait pt stated that she is independent with all mobilities and ambulation without AD but has been using a SPC for the last 3 months due to knee pain Social History Household Members spouse Living Arrangements House Number of Floors (Floors) 3 or More Floors Number of Stairs To Enter/Railing? 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 PT-IP Current Condition Start: 11/27/22 13:00 Freq: NEEDED Status: Active Protocol: Document 11/27/22 09:55 AB (Rec: 11/27/22 13:20 AB [id number]) Physical Therapy Current Condition Current Condition Evaluation Date 11/27/22 Treatment Diagnosis s/p R TKA; difficulty in walking Onset Date 11/26/22 M3 PT-IP Subjective Start: 11/27/22 13:00 Freq: NEEDED Status: Active Protocol: Document 11/27/22 09:55 AB (Rec: 11/27/22 13:20 AB [id number]) Subjective Physical Therapy Visit Type Type Initial Evaluation Visit Start Time 09:55 Visit Stop Time 11:25 Total Visit Minutes 90 Number of HOISTING ENGINEER Visits 0 Physical Therapy Visit Comments Patient Comments requesting to use the toilet Therapy Pain Assessment Pain When Pain Assessed At Rest Pain Present Pain Present Pain Reported Location right knee Scale Used pain scale not stated M4 PT-IP Mobility and Gait Start: 11/27/22 13:00 Freq: NEEDED Status: Active Protocol: Document 11/27/22 09:55 AB (Rec: 11/27/22 13:20 AB [id number]) PT-Bed Mobility Assessment Supine to Sit Supine to Sit Standby Assistance PT-Transfer Assessment Sit to and From Stand Sit to and from Stand Contact Guard Assistance,1 Person Assistance,Use of Upper Extremities Equipment Transfer Assistive Device Gait Belt,Front Wheeled Walker Orthotic/Prosthetic Devices or Brace: No Transfers Transfer Destination Toilet Transfer Technique ambulated Transfer Ability Level of Assist Contact Guard Assistance,1 Person Assistance,Use of Upper Extremities Comments Mobility Comments pt requesting to use the toilet. completed supine to sit SBA but pt kept R knee in extension; used FWW to support RLE in extension. c/o increase pain with flexion. completed sit to stand CGA and ambulated using FWW and pt hopping and not weight bearing on RLE. educated pt on importance of using RLE and weight bearing. instructed on how to use and to activate quads. pt completed toileting SBA. ambulated from the toilet to the sink CGA using FWW. able to maintain standing CGA while completing handwashing. ambulated to the chair using FWW CGA. pt educated on importance of ROM and weight bearing. provided and reviewed post-op folder/ handouts. completed seated heel slides. pt completed sit to stand from the chair CGA. completed single leg stance on RLE using FWW for support and completed min to mod A 10 sec hold. instructed to do single leg stance using L arm support on FWW mod A and max cues for steadiness and quads activation 10 sec hold. completed again using SPC and FLOOR RENOVATOR max A and max cues 5 sec hold. pt ambulated in the hallway using FWW CGA ~ 100 ft cued for weight bearing, quads activation. educated pt on stair climbing. pt completed up/down steps using R rail +SPC mod A and cues. completed up/down platform step using SPC + FLOOR RENOVATOR max A and max cues. assisted pt back to the room. pt ambulated from w/c to chair using FWW CGA. educated on LE exercises. positioned on the chair. call light and table placed within reach. set up caregiver training this afternoon at 130 am. pt will call spouse. informed nurse regarding caregiver training. Gait Assessment Gait Gait Assistance Required: Contact Guard Assist,1 Person Assist Distance (Feet) 100 Able to Maintain Weight Bearing Status Yes During Gait Assistive Devices Assistive Device Gait Belt,Front Wheeled Walker Orthotic/Prosthetic Devices or Brace: No Gait Deviations General Gait Pattern Antalgic,Decreased Stride Length,Decreased Feet Clearance Factors Limiting Gait Function Factors Limiting Gait Function Decreased Activity Tolerance, Decreased Strength,Limited Range of Motion,Pain,Poor Balance,Poor Safety Awareness Stair Climbing Assessment Devices Stair Climbing Assistive Devices Straight Cane,Right Railing Technique/Endurance Stair Climbing Direction Ascend and Descend Stair Climbing Technique Step to Step Number of Steps Climbed 3 Query Text: Stair Climbing Set # Repetitions (reps) 1 Comments Stair Climbing Comments pls refer to mobility section for details PT-Balance Assessment Sitting Balance and Reactions Static Sitting Balance Ability Good Dynamic Sitting Balance Ability Good Standing Balance and Reactions Static Standing Balance Ability Fair Dynamic Standing Balance Ability Poor Device Used FWW M5 PT-IP Objective Assessments Start: 11/27/22 13:00 Freq: NEEDED Status: Active Protocol: Document 11/27/22 09:55 AB (Rec: 11/27/22 13:20 AB [id number]) Orientation Orientation/Cognition Level of Alertness Alert Orientation Name,Situation Language Function Ability No Deficits Noted Safety Awareness Understands Safety Issues Memory Description No Deficits Noted Gross Range of Motion Lower Extremity ROM Assessment Right Impaired Impairments R knee flexion: ~ 25 deg R knee extension : ~ 30 deg less to 0 Strength Lower Extremity Strength Assessment Right Impaired Hip 3-/5 Knee 3-/5 Ankle 3+/5 Muscle Tone Muscle Tone WNL Yes M6 PT-IP Treatment Start: 11/27/22 13:00 Freq: NEEDED Status: Active Protocol: Document 11/27/22 09:55 AB (Rec: 11/27/22 13:20 AB [id number]) Physical Therapy Treatment Education Education Provided Precautions,Weight Bearing Status,Post-Op Packet,Safety M7 PT-IP Assessment and Plan Start: 11/27/22 13:00 Freq: NEEDED Status: Active Protocol: Document 11/27/22 09:55 AB (Rec: 11/27/22 13:20 AB [id number]) PT Summary Assessment and Plan Potential Rehabilitation Potential Fair Status of Condition at Evaluation Evolving Summary Impairments Pain,ROM,Strength,Balance, Coordination,Sensation,Tone, Cognition,Bed Mobility, Transfers,Gait,Activity Tolerance Assessment Summary pt requiring CGA with ambulation using fWW but initially was not using RLE for weight bearing. educated on importance of ROM and weight bearing and pt understood. Pt requiring mod to max A for stair climbing with c/o increase knee pain. Caregiver training set up this afternoon at 130 pm. will continue to assess progress. Goals Bed Mobility Goal Independent Transfer Goal Standby Assistance,Front Wheeled Walker Gait Goal Standby Assistance,Front Wheel Walker Gait Distance 150 Other Goals up/down 2 steps SPC + FLOOR RENOVATOR CGA up/down 3 steps R rail ascending + SPC SBA Days to Meet Goals 10 Frequency of Treatment Frequency Of Treatment Twice a Day Treatment Plan Physical Therapy Treatment Plan Bed Mobility Training,Transfer Training,Gait Training, Therapeutic Exercise,Balance Retraining,Post Op Education, Discharge Planning,Hot or Cold Pack,Neuromuscular Re-ed, Coordination Retraining,Manual Therapy Weight Bearing Status Weight Bearing Status Weight Bear as Tolerated Allowed Weight Bearing Amount (enter % RLE WBAT or #) (%) Recommendations To Nursing Amount of Assist Needed 1 Person Assist Discharge Recommendations PT Discharge Recommendations Home with Assistance, Outpatient PT Transportation Needs at Discharge Private Vehicle,Wheelchair/ Cabulance
--- NOTE | 2022-11-27 13:35 | PT.IPTN ---
Current Diagnoses Unilateral primary osteoarthritis, right knee (11/26/22) Surgery Performed Operation Date: 11/26/22 10:45 Actual Procedures p Total Knee Arthroplasty(Right) - Saurav Marshall MD Physical Therapy Treatment Note M2 PT-IP Current Condition Start: 11/27/22 13:00 Freq: NEEDED Status: Active Protocol: Document 11/27/22 09:55 AB (Rec: 11/27/22 13:20 AB [id number]) Physical Therapy Current Condition Current Condition Evaluation Date 11/27/22 Treatment Diagnosis s/p R TKA; difficulty in walking Onset Date 11/26/22 M3 PT-IP Subjective Start: 11/27/22 13:00 Freq: NEEDED Status: Active Protocol: Document 11/27/22 13:35 AB (Rec: 11/27/22 15:22 AB [email or web address]) Subjective Physical Therapy Visit Type Type Treatment Note Visit Start Time 13:35 Visit Stop Time 14:20 Total Visit Minutes 45 Number of WATER TAXI CAPTAIN Visits 0 Physical Therapy Visit Comments Patient Comments agreeable to do PT Therapy Pain Assessment Pain When Pain Assessed At Rest Pain Present Pain Present Pain Reported Location right knee Scale Used unable to stated pain scale Pain Management Techniques Distraction,Modification of Treatment,Re-positioning, Timing of Activity with Medications M4 PT-IP Mobility and Gait Start: 11/27/22 13:00 Freq: NEEDED Status: Active Protocol: Document 11/27/22 13:35 AB (Rec: 11/27/22 15:22 AB [id number]) PT-Bed Mobility Assessment Supine to Sit Supine to Sit Standby Assistance PT-Transfer Assessment Sit to and From Stand Sit to and from Stand Contact Guard Assistance,1 Person Assistance,2 Person Assistance Equipment Transfer Assistive Device Gait Belt,Front Wheeled Walker Orthotic/Prosthetic Devices or Brace: No Transfers Transfer Destination Chair Transfer Technique Stand Step Pivot Transfer Ability Level of Assist Contact Guard Assistance,1 Person Assistance,Use of Upper Extremities Comments Mobility Comments pt's spouse in room. pt completed supine to sit SBA. needs increase time to complete task. educated spouse on pt's ROM goal and quads activation during standing/ambulation and how to cue pt. educated spouse on how to use safety belt and how to assist pt. spouse was able to put safety belt on pt. assisted pt with sit to stand ambulated with pt ~ 100 ft using FWW CGA. educated spouse on how to assist pt with stair climbing. completed up/down step using R rail +SPC and spouse assisting. pt and spouse was able to complete safely. completed up/down platform step using SPC+PRODUCTION LINE TECHNICIAN and spouse was able to assist pt. assisted pt back to her room. ambulated from the w/c to EOB CGA using FWW and with spouse assisting. Left pt with spouse in room. pt requesting an shower prior to d/c and NAC informed. Gait Assessment Gait Gait Assistance Required: Contact Guard Assist Distance (Feet) 100 Able to Maintain Weight Bearing Status Yes During Gait Assistive Devices Assistive Device Gait Belt,Front Wheeled Walker Orthotic/Prosthetic Devices or Brace: No Gait Deviations General Gait Pattern Antalgic,Decreased Stride Length,Decreased Feet Clearance Factors Limiting Gait Function Factors Limiting Gait Function Decreased Activity Tolerance, Decreased Strength,Limited Range of Motion,Pain,Poor Balance,Poor Safety Awareness Stair Climbing Assessment Evaluation Level of Assist On Stairs Moderate Assistance,Maximal Assistance,1 Person Assistance Devices Stair Climbing Assistive Devices Straight Cane,Right Railing Technique/Endurance Stair Climbing Direction Ascend and Descend Stair Climbing Technique Step to Step Number of Steps Climbed 3 Stair Climbing Set # Repetitions (reps) 1 Comments Stair Climbing Comments pls refer to mobility section for details M5 PT-IP Objective Assessments Start: 11/27/22 13:00 Freq: NEEDED Status: Active Protocol: Document 11/27/22 09:55 AB (Rec: 11/27/22 13:20 AB [id number]) Orientation Orientation/Cognition Level of Alertness Alert Orientation Name,Situation Language Function Ability No Deficits Noted Safety Awareness Understands Safety Issues Memory Description No Deficits Noted Gross Range of Motion Lower Extremity ROM Assessment Right Impaired Impairments R knee flexion: ~ 25 deg R knee extension : ~ 30 deg less to 0 Strength Lower Extremity Strength Assessment Right Impaired Hip 3-/5 Knee 3-/5 Ankle 3+/5 Muscle Tone Muscle Tone WNL Yes M6 PT-IP Treatment Start: 11/27/22 13:00 Freq: NEEDED Status: Active Protocol: Document 11/27/22 13:35 AB (Rec: 11/27/22 15:22 AB [id number]) Physical Therapy Treatment Education Education Provided Safety M7 PT-IP Assessment and Plan Start: 11/27/22 13:00 Freq: NEEDED Status: Active Protocol: Document 11/27/22 13:35 AB (Rec: 11/27/22 15:22 AB [id number]) PT Summary Assessment and Plan Potential Rehabilitation Potential Fair Summary Impairments Pain,ROM,Strength,Balance, Coordination,Sensation,Tone, Cognition,Bed Mobility, Transfers,Gait,Activity Tolerance Progress Towards Goals Slow Progress due to Pain Assessment Summary caregiver training conducted and spouse is able to assist pt with mobility. Pt may go home when medically stable. Goals Bed Mobility Goal Independent Transfer Goal Standby Assistance,Front Wheeled Walker Gait Goal Standby Assistance,Front Wheel Walker Gait Distance 150 Other Goals up/down 2 steps SPC + PRODUCTION LINE TECHNICIAN CGA up/down 3 steps R rail ascending + SPC SBA Days to Meet Goals 10 Frequency of Treatment Frequency Of Treatment Twice a Day Treatment Plan Physical Therapy Treatment Plan Bed Mobility Training,Transfer Training,Gait Training, Therapeutic Exercise,Balance Retraining,Post Op Education, Discharge Planning,Hot or Cold Pack,Neuromuscular Re-ed, Coordination Retraining,Manual Therapy Weight Bearing Status Weight Bearing Status Weight Bear as Tolerated Allowed Weight Bearing Amount (enter % RLE WBAT or #) (%) Recommendations To Nursing Amount of Assist Needed 1 Person Assist Discharge Recommendations PT Discharge Recommendations Home with Assistance, Outpatient PT Transportation Needs at Discharge Private Vehicle,Wheelchair/ Cabulance
--- NOTE | 2022-11-27 17:31 | PC.NURSE ---
Pt is A&OX3, VSS, afebrile on RA. Manuel wrap to R Knee C/D/I. She has full sensation to RLE, +1 edema +CMS. She is able to get up to chair and bathroom but reports pain skyrocketing despite PRN oxycodone 10 mg q 3 hrs prn, with vestoril and breakthrough hydromorphone 2 mg po prn. She is tearful and weeping wit activity and often holding her head, and flushed in the face, grimacing after activity. She is picking her leg up this shift to get back in bed vs being able to use her leg muscles to lift her Right leg up onto the bed. Per PT, she was not cleared on evaluation this a.m. for safe discharge home. She is rescheduled for an afternoon session with PT and caregiver training with her . She reports she is feeling much improved however she is uncomfortable not being able to discharge home with current pain regimen. MD Marshall notified per pt request for an additional medication for breakthrough pain and per request for oxycodone 10 mg q 3 hours vs 5 mg q 4 hours which has been prescribed. Per MD Marshall, if patient is requiring additional breakthrough pain medications, she may not be ready to discharge today.Patient with good po intake, able to transport to the bathroom with SBA using FWW and. MANUEL wrap inplace C/D/I, patient appears more relaxed this evening and reports pain controlled this evening with prn pain medications.
[2022-11-27 20:45] VITALS: BP 119/70; PULSE 86; RESP 20; TEMP 36.4; O2SAT 97
[2022-11-27 23:35] VITALS: BP 138/72; PULSE 89; RESP 17; TEMP 36.6; O2SAT 100
[2022-11-28] MEDS: OXYCODONE IR 10 MG TABLET PO ×4 (02:17→13:45)
--- NOTE | 2022-11-28 04:23 | PC.NURSE ---
Pt is AxOx4, independent with her FWW and she was walking around in the room and hallway. However, pt's pain is still high and requiring PRN Oxy 10mg Q3hrs. Otherwise, no changes. Continue monitor.
[2022-11-28] MEDS: ACETAMINOPHEN 325 MG TABLET 650 MG PO ×2 (05:14→12:38)
[2022-11-28] MEDS: PANTOPRAZOLE DR 20 MG TABLET PO (05:14)
--- NOTE | 2022-11-28 06:53 | PM.PNPO.1 ---
Subjective Subjective Date Patient Seen: 11/28/22 Time Patient Seen: 06:53 Interval history: Pt unwilling to open eyes, writhing uncomfortably in bed, says she just got back from the bathroom and 'I don't even know where my pain is.' Was to d/c home yesterday but stayed d/t pain. Says she did feel better last night than she had the night before. Voiding and eating without difficulty. Exam Vital Signs (past 8 hours): - 11/27/22 23:35 Temperature 97.8 F Pulse Rate 89 Respiratory Rate 17 Blood Pressure 138/72 Pulse Oximetry 100 Oxygen Flow Rate 0 Oxygen Delivery Method Room Air Oxygen Flow Rate 0 Narrative Exam Narrative: Unwilling to participate in RLE exam. Sensation to light touch intact throughout RLE. Calf soft, compressible and without palpable cords or masses. Aquacel dressing CDI. Objective Labs Result Diagrams: 11/27/22 04:59 PFSH Medical History Breast cancer (~2004) Gastric ulcer (~2018) Irregular menstrual cycle Ovarian cyst Painful menstrual periods Surgical History (Updated 11/28/22 @ 06:54 by Brenda Dunne PA-C) Anesthesia History of bilateral oophorectomy (2020) History of hysterectomy (~11/2019) History of mastectomy (2011) Hx of arthroscopy of left knee Hx of arthroscopy of right knee Hx of breast biopsy Hx of colonoscopy Family History Mother Hypertension Hyperlipidemia Grandmother Cancer History of heart disease Social History household members: spouse Smoking Status: Former smoker alcohol intake: current Assessment & Plan Post-op Assessment and plan (1) Total knee replacement status: Assessment and Plan narrative: PT has cleared pt for homegoing. Eating and voiding without difficulty. D/c home today. Hydrocodone added to discharge meds. ASA BID for VTE prophylaxis, outpt PT, f/u in office in 2 weeks. Postoperative Procedures: Procedures Operation Date: 11/26/22 10:45 Actual Procedure Side Surgeon p Total Knee Arthroplasty Right Saurav Marshall MD Postoperative day: 2 Quality VTE Deep Vein Thrombosis/Pulmonary Embolism Present on Admission: No
[2022-11-28] MEDS: MELOXICAM 7.5 MG TABLET 15 MG PO (08:19)
[2022-11-28] MEDS: ASPIRIN EC 81 MG TABLET PO (08:20)
[2022-11-28] MEDS: ESCITALOPRAM 10 MG TABLET PO (08:20)
[2022-11-28] MEDS: DOCUSATE 100 MG CAPSULE PO (08:20)
[2022-11-28] MEDS: hydrOXYzine pamoate 25 MG CAPSULE PO (08:20)
[2022-11-28 09:10] VITALS: BP 126/71; PULSE 95; RESP 16; TEMP 36.7; O2SAT 95
--- NOTE | 2022-11-28 10:48 | PT.IPTN ---
Current Diagnoses Unilateral primary osteoarthritis, right knee (11/27/22) Presence of unspecified artificial knee joint (11/27/22) Surgery Performed Operation Date: 11/26/22 10:45 Actual Procedures p Total Knee Arthroplasty(Right) - Saurav Marshall MD Physical Therapy Treatment Note M2 PT-IP Current Condition Start: 11/27/22 13:00 Freq: NEEDED Status: Discharge Protocol: Document 11/28/22 10:48 LRN (Rec: 11/28/22 16:33 LRN [id number]) Physical Therapy Current Condition Current Condition Evaluation Date 11/27/22 Treatment Diagnosis s/p R TKA; difficulty in walking Onset Date 11/26/22 M3 PT-IP Subjective Start: 11/27/22 13:00 Freq: NEEDED Status: Discharge Protocol: Document 11/28/22 10:48 LRN (Rec: 11/28/22 16:33 LRN [id number]) Subjective Physical Therapy Visit Type Type Treatment Note Visit Start Time 10:10 Visit Stop Time 10:48 Total Visit Minutes 38 Physical Therapy Visit Comments Patient Comments Agreeable to do PT. States she has already been trained on the stairs and would like to have gait training. Therapy Pain Assessment Pain Present Pain Present Pain Reported M4 PT-IP Mobility and Gait Start: 11/27/22 13:00 Freq: NEEDED Status: Discharge Protocol: Document 11/28/22 10:48 LRN (Rec: 11/28/22 16:33 LRN [id number]) PT-Transfer Assessment Sit to and From Stand Sit to and from Stand Standby Assistance,1 Person Assistance Equipment Transfer Assistive Device Gait Belt,Front Wheeled Walker Orthotic/Prosthetic Devices or Brace: No Transfer Ability Level of Assist Standby Assistance,1 Person Assistance,Use of Upper Extremities Comments Mobility Comments Pt spouse in room to watch pt transfer and ambulate. Spouse aware of pt SBA need for RLE to move leg in/out of bed. Gait Assessment Gait Gait Assistance Required: Standby Assistance Distance (Feet) 150 Able to Maintain Weight Bearing Status Yes During Gait Assistive Devices Assistive Device Gait Belt,Front Wheeled Walker Orthotic/Prosthetic Devices or Brace: No Gait Deviations General Gait Pattern Antalgic,Decreased Stride Length,Decreased Feet Clearance Factors Limiting Gait Function Factors Limiting Gait Function Decreased Activity Tolerance, Decreased Strength,Limited Range of Motion,Pain,Poor Safety Awareness PT-Balance Assessment Sitting Balance and Reactions Static Sitting Balance Ability Good Dynamic Sitting Balance Ability Good Standing Balance and Reactions Static Standing Balance Ability Good Dynamic Standing Balance Ability Good Device Used Balance good with FWW M5 PT-IP Objective Assessments Start: 11/27/22 13:00 Freq: NEEDED Status: Discharge Protocol: Document 11/28/22 10:48 LRN (Rec: 11/28/22 16:33 LRN [id number]) Orientation Orientation/Cognition Level of Alertness Alert Orientation Name,Situation Language Function Ability No Deficits Noted Safety Awareness Understands Safety Issues Memory Description No Deficits Noted M6 PT-IP Treatment Start: 11/27/22 13:00 Freq: NEEDED Status: Discharge Protocol: Document 11/28/22 10:48 LRN (Rec: 11/28/22 16:33 LRN [id number]) Physical Therapy Treatment Exercises Exercises Seated Knee Flexion/Extension Other Treatments Other Treatment Performed Reviewed HEP of po TKA exercises. M7 PT-IP Assessment and Plan Start: 11/27/22 13:00 Freq: NEEDED Status: Discharge Protocol: Document 11/28/22 10:48 LRN (Rec: 11/28/22 16:33 LRN [id number]) PT Summary Assessment and Plan Potential Rehabilitation Potential Good Status of Condition at Evaluation Evolving Summary Impairments Pain,ROM,Strength,Balance, Sensation,Tone,Cognition,Bed Mobility,Transfers,Gait, Activity Tolerance Progress Towards Goals Slow Progress due to Pain Assessment Summary Spouse is able to assist pt with mobility. Pt may go home when medically stable. Pt met goal of ambulation of 150 ft with SBA/FWW/GB. Goals Bed Mobility Goal Independent Transfer Goal Standby Assistance,Front Wheeled Walker Gait Goal Standby Assistance,Front Wheel Walker Gait Distance 150 Other Goals up/down 2 steps SPC + RISK MANAGEMENT INTERN CGA up/down 3 steps R rail ascending + SPC SBA Days to Meet Goals 10 Frequency of Treatment Frequency Of Treatment Twice a Day Treatment Plan Physical Therapy Treatment Plan Bed Mobility Training,Transfer Training,Gait Training, Therapeutic Exercise,Balance Retraining,Post Op Education, Discharge Planning,Hot or Cold Pack,Neuromuscular Re-ed, Coordination Retraining,Manual Therapy Weight Bearing Status Weight Bearing Status Weight Bear as Tolerated Allowed Weight Bearing Amount (enter % RLE WBAT or #) (%) Recommendations To Nursing Amount of Assist Needed 1 Person Assist Discharge Recommendations PT Discharge Recommendations Home with Assistance, Outpatient PT Transportation Needs at Discharge Private Vehicle,Wheelchair/ Cabulance
--- NOTE | 2022-11-28 14:07 | PC.NURSE ---
Pt is A&OX3, VSS, afebrile on RA. Pt is able to participate with PT and is cleared for discharge home today. at bedside supportive. Patient appears to be slightly less anxious, and reports slightly improved pain control. She is evaluated early this a.m. by PA and is able to get PRN breakthrough pain medication sent to pharmacy. She is escorted by w/ch to private vehicle with her at approximately 1350 this afternoon for discharge home to [facility] with priority boarding pass. She has all of her belongings including FWW. She verbalizes understanding of pain medication schedule, activity, site care, s/sx of infection as well as follow up care.
== END 2022-11-28 13:50 | disposition home or self-care (01) ==
LOC: OR 11-28 09:18 → AC 11-28 09:18
PROVIDERS: Admitting Provider Orthopaedic Surgery; PCP Physician Assistant Medical; Referring Provider Orthopaedic Surgery; Visit Provider Orthopaedic Surgery
PROC: 0SRC0JZ Replacement of Right Knee Joint with Synthetic Substitute, Open Approach (ICD-10-PCS; CPT 27447; principal; 2022-11-26 10:45)
DX: M17.11 Unilateral primary osteoarthritis, right knee (principal)
CPT/HCPCS: 27447; 36415; 73560; 85014; 85018; 97116; 97162; 97530; C1776; G0378; C1713; C9290; J0690; J1100; J1170; J2250; J2270; J2405; J2704; J3010

== ENCOUNTER → 2023-02-05 16:30 | Outpatient (CLI) | payer BC, SELFPAY ==
[2022-11-26 15:30] VITALS: BMI 33.9
== END ==
PROVIDERS: PCP Physician Assistant Medical; Visit Provider Physician Assistant Medical
DX: N39.0 Urinary tract infection, site not specified (principal)
CPT/HCPCS: 87086

== ENCOUNTER → 2023-02-18 12:12 | Outpatient (CLI) | payer BC, SELFPAY ==
[2022-11-26 15:30] VITALS: BMI 33.9
[2023-02-18 20:24] LABS: Add Manual Diff / Slide Review NO; Basophils Absolute Auto 0 /uL (0-100); Basophils Percent Auto 0.9 % (0-2); Eosinophils Absolute Auto 100 /uL (0-450); Eosinophils Percent Auto 2.5 % (2-4); Hematocrit 40.3 % (36-46); Hemoglobin 13.8 g/dL (12.0-16.0); Lymphocytes Absolute Auto 1100 /uL (1100-4500); Lymphocytes Percent Auto 20.6 % (25-40); Mean Corpuscular HGB Conc 34.3 % (30-36); Mean Corpuscular Hemoglobin 29.7 PG (26-34); Mean Corpuscular Volume 86.6 fL (80-100); Monocytes Absolute Auto 500 /uL (0-900); Monocytes Percent Auto 9.6 % (3-14); Neutrophils Absolute Auto 3500 /uL (1500-7000); Neutrophils Percent Auto 66.4 % (50-75); Platelet Count 292 X10^3/uL (150-400); Red Blood Cell Count 4.65 X10^6/uL (4.0-5.2); Red Cell Distribution Width 12.6 % (11.6-14.8); White Blood Cell Count 5.3 X10^3/uL (4.5-11.0)
[2023-02-18 20:38] LABS: Alanine Aminotransferase 44 IU/L (<35); Albumin 4.4 g/dL (3.5-5.0); Albumin Globulin Ratio 1.2 (1.0-2.8); Alkaline Phosphatase 90 U/L (38-126); Aspartate Aminotransferase 42 IU/L (14-36); BUN Creatinine Ratio 23.7 (6-22); Bilirubin Total 0.3 mg/dL (0.2-1.3); Blood Urea Nitrogen 14 mg/dL (7-17); C-Reactive Protein Quant 1.4 mg/dL (<1.0); Calcium 9.6 mg/dL (8.4-10.2); Carbon Dioxide 34 mmol/L (22-32); Chloride 97 mmol/L (98-107); Estimated Glomerular Filt Rate > 60 mL/min (>60); Globulin 3.8 g/dL (1.7-4.1); Glucose 69 mg/dL (70-100); HEMOLYSIS < 15 (0-50); Sodium 138 mmol/L (137-145); Total Protein 8.2 g/dL (6.3-8.2)
[2023-02-18 20:52] LABS: Vitamin D 25 Hydroxy (D3) 37.5 ng/mL (30.0-100.0)
[2023-02-18 21:05] LABS: TSH w/ Reflex to FT4 1.36 uIU/mL (0.47-4.68)
[2023-02-18 21:07] LABS: Ferritin 58 ng/mL (11-264)
[2023-02-18 21:11] LABS: Erythrocyte Sedimentation Rate 24 MM/HR (0-20)
[2023-02-19 12:02] LABS: Rheumatoid Factor < 8.6 IU/mL (<12.0)
[2023-02-24 20:13] LABS: ANA Screen, IFA Negative (.)
== END ==
PROVIDERS: PCP Physician Assistant Medical; Visit Provider Physician Assistant Medical
DX: R53.83 Other fatigue (principal); D64.9 Anemia, unspecified; Z13.0 Encounter for screening for diseases of the blood and blood-forming organs and certain disorders involving the immune mechanism; Z13.228 Encounter for screening for other metabolic disorders; Z13.29 Encounter for screening for other suspected endocrine disorder
CPT/HCPCS: 80053; 82306; 82728; 84443; 85025; 85651; 86038; 86140; 86430

== ENCOUNTER → 2023-02-24 10:54 | Outpatient (CLI) | payer BC, SELFPAY ==
[2022-11-26 15:30] VITALS: BMI 33.9
[2023-02-24 12:18] LABS: Add Manual Diff / Slide Review NO; Basophils Absolute Auto 100 /uL (0-100); Basophils Percent Auto 1.3 % (0-2); Eosinophils Absolute Auto 100 /uL (0-450); Eosinophils Percent Auto 2.6 % (2-4); Hematocrit 41.9 % (36-46); Lymphocytes Absolute Auto 1100 /uL (1100-4500); Lymphocytes Percent Auto 21.7 % (25-40); Mean Corpuscular HGB Conc 33.5 % (30-36); Mean Corpuscular Hemoglobin 29.2 PG (26-34); Monocytes Absolute Auto 400 /uL (0-900); Monocytes Percent Auto 7.6 % (3-14); Neutrophils Absolute Auto 3300 /uL (1500-7000); Neutrophils Percent Auto 66.8 % (50-75); Platelet Count 318 X10^3/uL (150-400); Red Blood Cell Count 4.81 X10^6/uL (4.0-5.2); Red Cell Distribution Width 12.9 % (11.6-14.8)
[2023-02-24 12:47] LABS: Alanine Aminotransferase 48 IU/L (<35); Albumin 4.6 g/dL (3.5-5.0); Albumin Globulin Ratio 1.4 (1.0-2.8); Alkaline Phosphatase 103 U/L (38-126); Amylase 83 U/L (30-110); Aspartate Aminotransferase 33 IU/L (14-36); BUN Creatinine Ratio 18.6 (6-22); Bilirubin Total 0.5 mg/dL (0.2-1.3); Blood Urea Nitrogen 11 mg/dL (7-17); Calcium 9.7 mg/dL (8.4-10.2); Carbon Dioxide 28 mmol/L (22-32); Chloride 98 mmol/L (98-107); Estimated Glomerular Filt Rate > 60 mL/min (>60); Globulin 3.2 g/dL (1.7-4.1); Glucose 86 mg/dL (70-100); HEMOLYSIS < 15 (0-50); Lipase 194 U/L (23-300); Potassium 4.2 mmol/L (3.4-5.1); Sodium 135 mmol/L (137-145); Total Protein 7.8 g/dL (6.3-8.2)
[2023-02-24 13:08] LABS: TSH w/ Reflex to FT4 2.25 uIU/mL (0.47-4.68)
[2023-02-25 05:38] LABS: Labcorp Hemoglobin (Hb) A1c 5.2 % (4.8-5.6)
== END ==
PROVIDERS: PCP Physician Assistant Medical; Referring Provider Physician Assistant Medical; Visit Provider Physician Assistant Medical
DX: E16.2 Hypoglycemia, unspecified (principal); E66.9 Obesity, unspecified; R53.83 Other fatigue; R73.9 Hyperglycemia, unspecified; R74.8 Abnormal levels of other serum enzymes; Z96.659 Presence of unspecified artificial knee joint
CPT/HCPCS: 36415; 80053; 82150; 83036; 83690; 84443; 85025

== ENCOUNTER → 2023-09-03 09:04 | Outpatient (CLI) | payer BC, SELFPAY ==
[2022-11-26 15:30] VITALS: BMI 33.9
[2023-09-03 19:59] LABS: Alanine Aminotransferase 42 IU/L (<35); Albumin 4.5 g/dL (3.5-5.0); Albumin Globulin Ratio 1.3 (1.0-2.8); Alkaline Phosphatase 96 U/L (38-126); Aspartate Aminotransferase 34 IU/L (14-36); BUN Creatinine Ratio 19.2 (6-22); Bilirubin Total 0.7 mg/dL (0.2-1.3); Blood Urea Nitrogen 14 mg/dL (7-17); Carbon Dioxide 28 mmol/L (22-32); Chloride 100 mmol/L (98-107); Cholesterol 200 mg/dL (140-199); Estimated Glomerular Filt Rate > 60 mL/min (>60); Globulin 3.4 g/dL (1.7-4.1); Glucose 93 mg/dL (70-100); HDL Cholesterol 80 mg/dL (40-60); HEMOLYSIS < 15 (0-50); LDL Cholesterol Calculated 106 mg/dL (<100); Potassium 4.3 mmol/L (3.4-5.1); Sodium 138 mmol/L (137-145); Total Protein 7.9 g/dL (6.3-8.2); Triglycerides 72 mg/dL (35-150)
[2023-09-03 20:01] LABS: Add Manual Diff / Slide Review NO; Basophils Absolute Auto 0 /uL (0-100); Basophils Percent Auto 0.9 % (0-2); Eosinophils Absolute Auto 300 /uL (0-450); Eosinophils Percent Auto 6.3 % (2-4); Hematocrit 43.1 % (36-46); Hemoglobin 14.7 g/dL (12.0-16.0); Lymphocytes Absolute Auto 1100 /uL (1100-4500); Mean Corpuscular Hemoglobin 28.9 PG (26-34); Mean Corpuscular Volume 85.1 fL (80-100); Monocytes Absolute Auto 500 /uL (0-900); Monocytes Percent Auto 8.8 % (3-14); Neutrophils Absolute Auto 3300 /uL (1500-7000); Platelet Count 287 X10^3/uL (150-400); Red Blood Cell Count 5.07 X10^6/uL (4.0-5.2); Red Cell Distribution Width 13.5 % (11.6-14.8); White Blood Cell Count 5.2 X10^3/uL (4.5-11.0)
[2023-09-03 20:26] LABS: TSH w/ Reflex to FT4 2.76 uIU/mL (0.47-4.68)
== END ==
PROVIDERS: PCP Physician Assistant Medical; Visit Provider Physician Assistant Medical
DX: R74.8 Abnormal levels of other serum enzymes (principal); R53.83 Other fatigue; E66.9 Obesity, unspecified; R73.9 Hyperglycemia, unspecified; D64.9 Anemia, unspecified; Z13.29 Encounter for screening for other suspected endocrine disorder; Z13.0 Encounter for screening for diseases of the blood and blood-forming organs and certain disorders involving the immune mechanism; Z13.228 Encounter for screening for other metabolic disorders; E78.5 Hyperlipidemia, unspecified
CPT/HCPCS: 80053; 80061; 83036; 84443; 85025

== ENCOUNTER → 2023-10-23 16:08 | Outpatient (CLI) | payer BC, SELFPAY ==
[2022-11-26 15:30] VITALS: BMI 33.9
--- NOTE | 2023-10-23 16:09 | DI.US.S_ITS ---
PROCEDURE: US ABDOMEN LIMITED INDICATIONS: persistent LFT elevation TECHNIQUE: Real-time scanning was performed of the abdominal and retroperitoneal organs, with image documentation. COMPARISON: None. FINDINGS: Liver: Liver is normal in size and homogeneous in echotexture. Liver parenchyma is diffusely echogenic. No solid mass on the provided images. Portal vein is patent. Gallbladder: Stones and sludge. Normal wall thickness measuring 2 mm. No pericholecystic fluid. Biliary ducts: Intrahepatic bile ducts are non-dilated. Extrahepatic bile duct caliber measures 3 mm. Normal is 6-7 mm or less in diameter, or 10 mm or less post-cholecystectomy. Pancreas: Visualized portions of the pancreas are sonographically normal. IMPRESSION: 1. Liver parenchyma is diffusely echogenic which may be seen in the setting of parenchymal disease such as steatosis. 2. Cholelithiasis without acute cholecystitis. No biliary ductal dilatation. Dictated by: Shala Vanessa M.D. on 10/23/2023 at 17:48 Approved by: Shala Vanessa M.D. on 10/23/2023 at 17:49
== END ==
PROVIDERS: PCP Physician Assistant Medical; Referring Provider Physician Assistant Medical; Visit Provider Physician Assistant Medical
DX: R74.8 Abnormal levels of other serum enzymes (principal); K80.20 Calculus of gallbladder without cholecystitis without obstruction
CPT/HCPCS: 76705

== ENCOUNTER → 2023-11-24 09:11 | Outpatient (CLI) | payer BC, SELFPAY ==
[2022-11-26 15:30] VITALS: BMI 33.9
[2023-11-24 19:15] LABS: Add Manual Diff / Slide Review NO; Basophils Absolute Auto 0 /uL (0-100); Eosinophils Absolute Auto 200 /uL (0-450); Eosinophils Percent Auto 4.3 % (2-4); Hematocrit 41.8 % (36-46); Hemoglobin 13.9 g/dL (12.0-16.0); Lymphocytes Absolute Auto 1300 /uL (1100-4500); Lymphocytes Percent Auto 26.4 % (25-40); Mean Corpuscular HGB Conc 33.2 % (30-36); Mean Corpuscular Hemoglobin 28.7 PG (26-34); Mean Corpuscular Volume 86.4 fL (80-100); Monocytes Absolute Auto 400 /uL (0-900); Monocytes Percent Auto 8.4 % (3-14); Neutrophils Absolute Auto 3100 /uL (1500-7000); Neutrophils Percent Auto 59.9 % (50-75); Platelet Count 281 X10^3/uL (150-400); Red Blood Cell Count 4.84 X10^6/uL (4.0-5.2); Red Cell Distribution Width 13.7 % (11.6-14.8); White Blood Cell Count 5.1 X10^3/uL (4.5-11.0)
[2023-11-24 19:52] LABS: Alanine Aminotransferase 47 IU/L (<35); Albumin 4.2 g/dL (3.5-5.0); Albumin Globulin Ratio 1.4 (1.0-2.8); Alkaline Phosphatase 97 U/L (38-126); BUN Creatinine Ratio 17.9 (6-22); Bilirubin Total 0.7 mg/dL (0.2-1.3); Blood Urea Nitrogen 12 mg/dL (7-17); Calcium 9.8 mg/dL (8.4-10.2); Carbon Dioxide 29 mmol/L (22-32); Chloride 101 mmol/L (98-107); Cholesterol 226 mg/dL (140-199); Estimated Glomerular Filt Rate > 60 mL/min (>60); Gamma Glutamyl Transpeptidase 26 U/L (12-43); Globulin 2.9 g/dL (1.7-4.1); Glucose 98 mg/dL (70-100); HDL Cholesterol 76 mg/dL (40-60); HEMOLYSIS < 15 (0-50); LDL Cholesterol Calculated 127 mg/dL (<100); Sodium 137 mmol/L (137-145); Total Protein 7.1 g/dL (6.3-8.2); Triglycerides 116 mg/dL (35-150)
[2023-11-27 16:07] LABS: Aspartate Aminotransferase 36 IU/L (14-36)
== END ==
PROVIDERS: PCP Physician Assistant Medical; Visit Provider Physician Assistant Medical
DX: R74.8 Abnormal levels of other serum enzymes (principal)
CPT/HCPCS: 80053; 80061; 82977; 85025

== ENCOUNTER → 2024-02-23 10:11 | Outpatient (CLI) | payer SELFPAY ==
[2022-11-26 15:30] VITALS: BMI 33.9
[2024-02-23 20:16] LABS: Ferritin 28 ng/mL (11-264)
[2024-02-24 05:20] LABS: HBsAg Screen Negative (Negative); Hepatitis A Antibody IgM Negative (Negative); Hepatitis B Core Antibody IgM Negative (Negative); Hepatitis C Antibody Non Reactive (Non Reactive)
== END ==
PROVIDERS: PCP Physician Assistant Medical; Visit Provider Internal Medicine Gastroenterology
DX: R74.8 Abnormal levels of other serum enzymes (principal)
CPT/HCPCS: 80074; 81596; 82728

== ENCOUNTER 2024-06-13 14:21 | Inpatient (IN) | payer OTHER, SELFPAY ==
[2022-11-26 15:30] VITALS: BMI 33.9
[2024-06-13] VITALS (11 sets, daily range): BP systolic 141–179; BP diastolic 83–101; PULSE 60–74; RESP 18; TEMP 36.8; O2SAT 93–99; BMI 33.9
--- NOTE | 2024-06-13 14:47 | EKG_ITS ---
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
[2024-06-13 15:18] LABS: Add Manual Diff / Slide Review NO; Basophils Absolute Auto 0 /uL (0-100); Basophils Percent Auto 1.3 % (0-2); Eosinophils Absolute Auto 100 /uL (0-450); Eosinophils Percent Auto 3.2 % (2-4); Hematocrit 42.6 % (36-46); Hemoglobin 14.3 g/dL (12.0-16.0); Lymphocytes Absolute Auto 900 /uL (1100-4500); Lymphocytes Percent Auto 26.7 % (25-40); Mean Corpuscular HGB Conc 33.6 % (30-36); Mean Corpuscular Hemoglobin 29.3 PG (26-34); Mean Corpuscular Volume 87.2 fL (80-100); Monocytes Absolute Auto 400 /uL (0-900); Monocytes Percent Auto 10.6 % (3-14); Neutrophils Absolute Auto 2000 /uL (1500-7000); Neutrophils Percent Auto 58.2 % (50-75); Platelet Count 277 X10^3/uL (150-400); Red Blood Cell Count 4.89 X10^6/uL (4.0-5.2); Red Cell Distribution Width 13.4 % (11.6-14.8); White Blood Cell Count 3.5 X10^3/uL (4.5-11.0)
--- NOTE | 2024-06-13 15:30 | DI.US.S_ITS ---
PROCEDURE: US ABDOMEN LIMITED INDICATIONS: RUQ pain, known gall stones TECHNIQUE: Real-time focused scanning was performed of the abdomen, with image documentation. COMPARISON: [facility], [place], US ABDOMEN LIMITED, 10/23/2023, 16:19. FINDINGS: The liver demonstrates normal size. The liver demonstrates generalized moderately increased echogenicity. This decreases ultrasound sensitivity for detection of hepatic masses. Numerous small mobile gallstones are seen. The gallbladder wall is not thickened, measuring 3 mm or less. No specific pericholecystic fluid is seen. The sonographic Larios sign is negative. There is no biliary dilatation, the common bile duct measures 6 mm. No significant pancreatic abnormality is seen on these images. IMPRESSION: Numerous small mobile gallstones are seen, without additional sonographic signs of cholecystitis. The liver demonstrates increased echogenicity. This finding is nonspecific, yet it is most commonly attributed to fatty infiltration. Dictated by: Andrew Martin M.D. on 06/13/2024 at 15:51 Approved by: Andrew Martin M.D. on 06/13/2024 at 15:52
[2024-06-13 15:33] LABS: Alanine Aminotransferase 693 IU/L (<35); Albumin 4.7 g/dL (3.5-5.0); Albumin Globulin Ratio 1.4 (1.0-2.8); Alkaline Phosphatase 176 U/L (38-126); Aspartate Aminotransferase 688 IU/L (14-36); BUN Creatinine Ratio 17.6 (6-22); Bilirubin Total 1.4 mg/dL (0.2-1.3); Blood Urea Nitrogen 13 mg/dL (7-17); Calcium 9.5 mg/dL (8.4-10.2); Carbon Dioxide 28 mmol/L (22-32); Chloride 103 mmol/L (98-107); Estimated Glomerular Filt Rate > 60 mL/min (>60); Globulin 3.3 g/dL (1.7-4.1); Glucose 91 mg/dL (70-100); HEMOLYSIS < 15 (0-50); Lipase 129 U/L (23-300); Potassium 4.1 mmol/L (3.4-5.1); Sodium 139 mmol/L (137-145)
--- NOTE | 2024-06-13 16:25 | DI.MRI.S_ITS ---
PROCEDURE: MR AB PANCREATIC/MRCP PROTOCOL INDICATIONS: gallstones, high bili TECHNIQUE: Coronal HASTE through the abdomen, axial 2-D FLASH in- and [id number], and breath-hold T2 FSE with fat saturation through the biliary system and pancreas. Oblique coronal and axial thin-slice HASTE, radial thick-slab HASTE centered on the extrahepatic bile ducts. COMPARISON: None. FINDINGS: Image quality: Fair. Artifact on the heavily T2 weighted source image. Gallbladder: Multiple small gallstones. No pericholecystic fluid. Biliary ducts: No biliary dilation. No convincing filling defect. Pancreas: No ductal dilation. No peripancreatic fluid collection. No suspicious enhancement. OTHER: Lung bases: Unremarkable. Liver: No solid mass. Hepatic steatosis. Spleen: Size is within normal limits. Adrenal Glands: No adrenal nodules. Kidneys and Ureters: No hydronephrosis. No solid mass. No complex renal cystic lesion which requires follow up. Stomach and Bowel: Normal colonic caliber, without significant wall thickening. Peritoneum: No abnormal intraperitoneal fluid. No free air. Ventral Wall: No hernia. Abdominal Nodes: No retroperitoneal or mesenteric adenopathy by size criteria. Vessels: Aorta and inferior vena cava are normal in size. Bones: No aggressive osseous abnormality. IMPRESSION: 1. Numerous small gallstones. 2. No biliary or pancreatic ductal dilatation. No obvious choledocholithiasis. Recommend low threshold for ERCP. 3. No mass or suspicious enhancement. Dictated by: Javier Toure M.D. on 06/13/2024 at 19:35 Approved by: Javier Toure M.D. on 06/13/2024 at 19:42
[2024-06-13] MEDS: KETOROLAC 30 MG/ML VIAL 15 MG IV (16:49)
--- NOTE | 2024-06-13 17:11 | ED.ABDPAIN ---
HPI - Abdominal Pain General Chief Complaint: Abdominal Pain Stated Complaint: gallbladder pain Time Seen by Provider: 06/13/24 16:06 Source: patient and family Mode of arrival: Family Vehicle History of Present Illness HPI narrative: Patient is a 54-year-old female presenting with abdominal pain nausea vomiting. She reports that she is known gallstones but started having increasing pain this morning. She has not had anything to eat since last night, she did have some Tylenol. No fever chills no chest pain shortness. She did have an ultrasound back on October 23 which showed cholelithiasis without acute cholecystitis Related Data Home Medications Medication Instructions Recorded Confirmed estradiol 0.05 mg/24 hr weekly 1 patch transdermal 2XW 07/11/22 09/17/23 transdermal patch Previous Rx's Medication Instructions Recorded sumatriptan 5 mg/actuation nasal 5 mg intranasal Q2-4H PRN migraine 10/09/21 spray (Imitrex) headache #6 ea hydroxyzine pamoate 25 mg capsule 25 mg PO Q6H PRN Nausea And 11/27/22 Vomiting #30 caps oxycodone 5 mg tablet 5 mg PO Q3HR PRN Pain, Moderate 11/27/22 (4-6) #40 tabs fluoxetine 10 mg capsule 20 mg (2 x 10 mg) PO DAILY #60 caps 11/03/23 fluoxetine 10 mg capsule 10 mg PO DAILY #90 caps 11/13/23 semaglutide (weight loss) 2.4 2.4 mg (0.75 mL) SUBCUT QWEEK #3 mL 11/24/23 mg/0.75 mL subcutaneous pen injector escitalopram oxalate 10 mg tablet 10 mg PO DAILY 90 days #90 tabs 03/21/24 Allergies Allergy/AdvReac Type Severity Reaction Status Date / Time Penicillins Allergy Severe Reaction Verified 06/13/24 14:52 as an hydrocodone [From Vicodin] Allergy Intermediate itchy skin Verified 06/13/24 14:52 diphenhydramine AdvReac Severe It knocks Verified 06/13/24 14:52 [From Benadryl] me out immediately Patient History Medical History Painful menstrual periods Ovarian cyst Irregular menstrual cycle Gastric ulcer (~2018) Breast cancer (~2005) Surgical History Hx of colonoscopy Hx of breast biopsy History of bilateral oophorectomy (2020) Hx of arthroscopy of left knee Hx of arthroscopy of right knee Anesthesia History of mastectomy (2011) History of hysterectomy (~11/2019) Family History Mother Hypertension Hyperlipidemia Grandmother Cancer History of heart disease Social History household members: spouse Smoking Status: Never smoker alcohol intake: current Smoking Status: Never smoker alcohol intake frequency: holidays/special occasions only Substance Use Type: marijuana Exam Initial Vital Signs Initial Vital Signs: Vital Signs Temperature 98.3 F 06/13/24 14:48 Pulse Rate 66 06/13/24 14:48 Respiratory Rate 18 06/13/24 14:48 Blood Pressure 144/85 H 06/13/24 14:48 Pulse Oximetry 99 06/13/24 14:48 Oxygen Delivery Method Room Air 06/13/24 14:48 GENERAL: Alert 54-year-old female appears to not feel well and in no acute distress. HEENT: Head atraumatic,EOMI, pupils reactive, face symmetric, moist mucous membranes CARDIOVASCULAR: Regular rate and rhythm without murmurs, rubs or gallops. RESPIRATORY: Breath sounds equal bilaterally, no wheezes rales or rhonchi. ABDOMEN: Soft, tender right upper quadrant positive Larios's sign EXTREMITIES: Normal range of motion, no clubbing or edema. Neurovascularly intact NEUROLOGICAL: Alert and oriented x4.Normal gait and speech. SKIN: Warm, dry, no laceration, no petechiae, no rashes or lesions. Course Orders Ordered: ED Orders 06/13/24 14:47 EKG-12 Lead Stat 06/13/24 14:57 Complete Blood Count AUTO DIFF Stat Comprehensive Metabolic Panel Stat Lipase Stat 06/13/24 15:30 US abdomen limited Stat 06/13/24 16:25 MRCP [MR abdomen wo/w con] Stat Acetaminophen (Acetaminophen 325 Mg Tablet) 650 mg PO Q6H PRN PRN Reason: Fever/Mild Pain (1-3) Hydrocodone Bitart/Acetaminophen (Hydrocodone/Acet 5/325 Tablet) 1 tab PO Q4H PRN PRN Reason: Pain, Moderate (4-6) Hydrocodone Bitart/Acetaminophen (Hydrocodone/Acet 5/325 Tablet) 2 tab PO Q4H PRN PRN Reason: Pain, Severe (7-10) Hydromorphone HCl (Hydromorphone 0.5 Mg Inj) 0.5 mg IV Q2H PRN PRN Reason: Pain, Severe (7-10) Sodium Chloride (Normal Saline 0.9%) 1,000 mls @ 125 mls/hr IV CONT DEBO Last Admin: 06/13/24 20:12 Dose: 125 mls/hr Documented By: SAVANNAH Lactated Ringer's (Lactated Ringers) 1,000 mls @ 100 mls/hr IV CONT DEBO Last Admin: 06/13/24 20:34 Dose: 100 mls/hr Documented By: SAVANNAH Ibuprofen (Ibuprofen 600 Mg Tablet) 600 mg PO Q6H PRN PRN Reason: Fever/Mild Pain (1-3) Morphine Sulfate (Morphine 2 Mg/Ml Inj) 2 mg IV Q4HR PRN PRN Reason: Pain, Moderate (4-6) Last Admin: 06/13/24 20:13 Dose: 2 mg Documented By: SAVANNAH Naloxone HCl (Naloxone 0.4 Mg/Ml Vial) 0.2 mg IV Q2MIN PRN PRN Reason: Opiate Reversal Ondansetron HCl (Ondansetron 4 Mg/2 Ml Inj) 4 mg IV NOW PRN PRN Reason: Nausea And Vomiting Ondansetron HCl (Ondansetron 4 Mg Odt) 4 mg PO NOW PRN PRN Reason: Nausea And Vomiting Ondansetron HCl (Ondansetron 4 Mg/2 Ml Inj) 4 mg IV Q6HR PRN PRN Reason: Nausea And Vomiting Discontinued Medications Ketorolac Tromethamine (Ketorolac 30 Mg/Ml Vial) 15 mg IV NOW ONE Stop: 06/13/24 16:07 Last Admin: 06/13/24 16:49 Dose: 15 mg Documented By: SAVANNAH Morphine Sulfate (Morphine 2 Mg/Ml Inj) 2 mg IV NOW ONE Stop: 06/13/24 16:07 Last Admin: 06/13/24 19:20 Dose: Not Given Documented By: FRANCHESCA Vital Signs Vital signs: Vital Signs - 8 hr 06/13/24 14:48 06/13/24 15:55 06/13/24 15:55 Temperature 98.3 F Pulse Rate 66 60 Respiratory Rate 18 Blood Pressure 144/85 H 167/89 H Pulse Oximetry 99 99 Oxygen Delivery Method Room Air 06/13/24 16:00 06/13/24 16:30 06/13/24 17:00 Temperature Pulse Rate 65 72 69 Respiratory Rate Blood Pressure Pulse Oximetry 99 99 98 Oxygen Delivery Method 06/13/24 17:30 06/13/24 19:37 06/13/24 19:37 Temperature Pulse Rate 69 69 Respiratory Rate Blood Pressure 179/101 H Pulse Oximetry 99 99 Oxygen Delivery Method Room Air MDM - Abdominal Pain Lab Data 06/13/24 14:57 06/13/24 14:57 Labs: Lab Results 06/13/24 Range/Units 14:57 WBC 3.5 L (4.5-11.0) X10^3/uL RBC 4.89 (4.0-5.2) X10^6/uL Hgb 14.3 (12.0-16.0) g/dL Hct 42.6 (36-46) % MCV 87.2 (80-100) fL MCH 29.3 (26-34) PG MCHC 33.6 (30-36) % RDW 13.4 (11.6-14.8) % Plt Count 277 (150-400) X10^3/uL Neut % (Auto) 58.2 (50-75) % Lymph % (Auto) 26.7 (25-40) % [place] % (Auto) 10.6 (3-14) % Eos % (Auto) 3.2 (2-4) % Baso % (Auto) 1.3 (0-2) % Neut # (Auto) 2000 (1624-7811) /uL Lymph # (Auto) 900 L (8601-1728) /uL [place] # (Auto) 400 (0-900) /uL Eos # (Auto) 100 (0-450) /uL Baso # (Auto) 0 (0-100) /uL Sodium 139 (137-145) mmol/L Potassium 4.1 (3.4-5.1) mmol/L Chloride 103 (98-107) mmol/L Carbon Dioxide 28 (22-32) mmol/L BUN 13 (7-17) mg/dL Creatinine 0.74 (0.52-1.04) mg/dL Estimated GFR > 60 (>60) mL/min BUN/Creatinine Ratio 17.6 (6-22) Glucose 91 (70-100) mg/dL Calcium 9.5 (8.4-10.2) mg/dL Total Bilirubin 1.4 H (0.2-1.3) mg/dL AST 688 H (14-36) IU/L ALT 693 H (<35) IU/L Alkaline Phosphatase 176 H (38-126) U/L Total Protein 8.0 (6.3-8.2) g/dL Albumin 4.7 (3.5-5.0) g/dL Globulin 3.3 (1.7-4.1) g/dL Albumin/Globulin Ratio 1.4 (1.0-2.8) Lipase 129 (23-300) U/L Point of care testing: Urine Dip Bedside Urine Glucose Negative Bedside Urine Bilirubin - Negative Bedside Urine Ketone +/- 5 Urine Specific [place] 1.020 Bedside Urine Occult Blood - Negative Bedside Urine pH 6.0 Bedside Urine Protein - Negative Bedside Urine Urobilinogen - Negative Bedside Urine Nitrite - Negative Bedside Urine Leukocytes - Negative Esterase Imaging Data US - abdomen: Radiologist's Impression: PROCEDURE: US ABDOMEN LIMITED INDICATIONS: RUQ pain, known gall stones TECHNIQUE: Real-time focused scanning was performed of the abdomen, with image documentation. COMPARISON: [facility], US, US ABDOMEN LIMITED, 10/23/2023, 16:19. FINDINGS: The liver demonstrates normal size. The liver demonstrates generalized moderately increased echogenicity. This decreases ultrasound sensitivity for detection of hepatic masses. Numerous small mobile gallstones are seen. The gallbladder wall is not thickened, measuring 3 mm or less. No specific pericholecystic fluid is seen. The sonographic Larios sign is negative. There is no biliary dilatation, the common bile duct measures 6 mm. No significant pancreatic abnormality is seen on these images. IMPRESSION: Numerous small mobile gallstones are seen, without additional sonographic signs of cholecystitis. The liver demonstrates increased echogenicity. This finding is nonspecific, yet it is most commonly attributed to fatty infiltration. Dictated by: Andrew Martin M.D. on 06/13/2024 at 15:51 MRCP: Radiologist's Impression: PROCEDURE: MR AB PANCREATIC/MRCP PROTOCOL INDICATIONS: gallstones, high bili TECHNIQUE: Coronal HASTE through the abdomen, axial 2-D FLASH in- and [id number], and breath-hold T2 FSE with fat saturation through the biliary system and pancreas. Oblique coronal and axial thin-slice HASTE, radial thick-slab HASTE centered on the extrahepatic bile ducts. COMPARISON: None. FINDINGS: Image quality: Fair. Artifact on the heavily T2 weighted source image. Gallbladder: Multiple small gallstones. No pericholecystic fluid. Biliary ducts: No biliary dilation. No convincing filling defect. Pancreas: No ductal dilation. No peripancreatic fluid collection. No suspicious enhancement. OTHER: Lung bases: Unremarkable. Liver: No solid mass. Hepatic steatosis. Spleen: Size is within normal limits. Adrenal Glands: No adrenal nodules. Kidneys and Ureters: No hydronephrosis. No solid mass. No complex renal cystic lesion which requires follow up. Stomach and Bowel: Normal colonic caliber, without significant wall thickening. Peritoneum: No abnormal intraperitoneal fluid. No free air. Ventral Wall: No hernia. Abdominal Nodes: No retroperitoneal or mesenteric adenopathy by size criteria. Vessels: Aorta and inferior vena cava are normal in size. Bones: No aggressive osseous abnormality. IMPRESSION: 1. Numerous small gallstones. 2. No biliary or pancreatic ductal dilatation. No obvious choledocholithiasis. Recommend low threshold for ERCP. 3. No mass or suspicious enhancement. Dictated by: Javier Toure M.D. on 06/13/2024 at 19:35 MDM Narrative Medical decision making narrative: Patient 54-year-old female with known cholelithiasis presents today with increasing abdominal pain nausea. He is tender in her right upper quadrant. Ultrasound confirms multiple small mobile cholelithiasis without evidence of acute cholecystitis Blood work is concerning with elevated bilirubin of 1.4, AST 688, ALT 693 alk-phos 176 lipase 129 Concern for choledocholithiasis MRCP is done which actually does not show evidence of choledocholithiasis or cholecystitis Discussion with patient she would very much like to have her gallbladder removed as soon as possible No concern for sepsis Dr. Youssef, updated patient's symptoms test results and accepts patient Discharge Plan Departure Patient Disposition: Admitted as Observation Clinical Impression: Cholelithiasis Admit Date/Time: 06/13/24 20:01 Admit Provider: Robreto Dodd
[2024-06-13] MEDS: SODIUM CHLORIDE 0.9% 1,000 ML 125 ML IV (20:12)
[2024-06-13] MEDS: MORPHINE 2 MG/ML INJ IV (20:13)
[2024-06-13] MEDS: LACTATED RINGERS 1,000 ML 100 ML IV (20:34)
--- NOTE | 2024-06-13 20:47 | PC.NURSE ---
pain is controlled with 2mg of morphine, see MAR and patient is maintaining their sats above 91%
[2024-06-14] VITALS (17 sets, daily range): BP systolic 125–152; BP diastolic 71–93; PULSE 61–84; RESP 7–25; TEMP 35.9–36.9; O2SAT 93–98; BMI 33.9
--- NOTE | 2024-06-14 | DI.RAD.S_ITS ---
PROCEDURE: XR CHOLANGIOGRAM OPERATIVE INDICATIONS: CHOLECYSTECTOMY WITH CHOLANGIOGRAM COMPARISON: None. Findings and impression: Contrast injection into the biliary system with normal transit into the bowel. Possible contrast is seen under the hepatic surface. A biliary stent is present. Please see operative note for full details. Dictated by: Rasheed Longo M.D. on 06/14/2024 at 15:33 Approved by: Rasheed Longo M.D. on 06/14/2024 at 15:35
--- NOTE | 2024-06-14 | PATH_ITS ---
[facility] Accession Number: [id number] No. of containers..01 Tissue . 01 Material submitted: . gallbladder - GALLBLADDER . 01 Diagnosis: GALLBLADDER, CHOLECYSTECTOMY: Chronic cholecystitis with cholesterolosis. Cholelithiasis. Negative for dysplasia or malignancy. [facility] 06/16/2024 1017 Local . 01 Electronically signed: . Martha Doll MD, Pathologist NPI- [id number] . 01 Gross description: . Received in formalin labeled with two patient identifiers and gallbladder, and consists of an 8.5 x 4.2 x 3.5 cm unopened gallbladder. The serosal surface is milton green with congested serosal vessels and focally cauterized liver bed. There is approximately 0.4 x 0.3 cm of probed patent cystic duct which is inked blue. There is an 0.8 x 0.5 cm red-milton encapsulated unremarkable cystic node. The wall is uniformly thick at 0.1 cm. The mucosa is milton-green and finely granular. The gallbladder is filled with a 3.5 x 3.0 x 2.2 cm aggregate of yellow multifaceted gallstaones and approximately 30 cc of brown to green viscid bile. Sections of the gallbladder are submitted in cassette A1 to include cystic duct and one cystic node bisected. ([id number]) /[facility] 06/16/2024 1631 Local . 01 Pathologist provided ICD-10: K80.61 . 01 CPT . 668539 Specimen Comment: A courtesy copy of this report has been sent to [phone] Performed at: [address] [facility], [place], [place] [id number] MD Hao Hou MD Phone: [phone]
--- NOTE | 2024-06-14 01:38 | PC.NURSE ---
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 Patient is AxOx4, VSS. Denies pain/nausea currently. Abdomen is soft & tender in RUQ, bowel tones are active. Patient is NPO, IVF infusing as ordered. Oriented to call-light. Plan of care ongoing.
[2024-06-14] MEDS: LACTATED RINGERS 1,000 ML 100 ML IV ×3 (05:54→11:53)
[2024-06-14 06:55] LABS: Add Manual Diff / Slide Review NO; Basophils Absolute Auto 0 /uL (0-100); Eosinophils Absolute Auto 200 /uL (0-450); Eosinophils Percent Auto 4.6 % (2-4); Hematocrit 40.8 % (36-46); Hemoglobin 13.9 g/dL (12.0-16.0); Lymphocytes Absolute Auto 1200 /uL (1100-4500); Lymphocytes Percent Auto 28.2 % (25-40); Mean Corpuscular HGB Conc 34.1 % (30-36); Mean Corpuscular Hemoglobin 29.7 PG (26-34); Monocytes Absolute Auto 400 /uL (0-900); Monocytes Percent Auto 8.6 % (3-14); Neutrophils Absolute Auto 2400 /uL (1500-7000); Neutrophils Percent Auto 57.6 % (50-75); Platelet Count 269 X10^3/uL (150-400); Red Blood Cell Count 4.69 X10^6/uL (4.0-5.2); Red Cell Distribution Width 13.4 % (11.6-14.8); White Blood Cell Count 4.2 X10^3/uL (4.5-11.0)
[2024-06-14 07:04] LABS: Alanine Aminotransferase 483 IU/L (<35); Albumin 4.2 g/dL (3.5-5.0); Albumin Globulin Ratio 1.3 (1.0-2.8); Alkaline Phosphatase 151 U/L (38-126); Aspartate Aminotransferase 287 IU/L (14-36); BUN Creatinine Ratio 19.7 (6-22); Bilirubin Total 1.3 mg/dL (0.2-1.3); Blood Urea Nitrogen 15 mg/dL (7-17); Calcium 9.3 mg/dL (8.4-10.2); Carbon Dioxide 27 mmol/L (22-32); Chloride 105 mmol/L (98-107); Estimated Glomerular Filt Rate > 60 mL/min (>60); Globulin 3.3 g/dL (1.7-4.1); Glucose 91 mg/dL (70-100); HEMOLYSIS < 15 (0-50); Potassium 3.7 mmol/L (3.4-5.1); Sodium 137 mmol/L (137-145); Total Protein 7.5 g/dL (6.3-8.2)
--- NOTE | 2024-06-14 09:19 | P.HP_ITS ---
History of Present Illness History of Present Illness Date Patient Seen: 06/14/24 Time Patient Seen: 09:19 Chief complaint: gallbladder pain Narrative: Rachel is a 54-year-old woman presents with symptomatic cholelithiasis. She has had postprandial right upper quadrant pain over the past year or so but it has become progressively worse frequent. She did have an ultrasound in October that showed gallstones. She develops her pain yesterday came ER were an ultrasound showed gallstones without evidence of acute cholecystitis. She would some mild elevations in her liver enzymes and an MRCP was performed which showed no obvious choledocholithiasis or bile duct obstruction. Her pancreatic enzymes have been normal. [facility] Medical History Painful menstrual periods Ovarian cyst Irregular menstrual cycle Gastric ulcer (~2018) Breast cancer (~2004) Surgical History Hx of colonoscopy Hx of breast biopsy History of bilateral oophorectomy (2020) Hx of arthroscopy of left knee Hx of arthroscopy of right knee Anesthesia History of mastectomy (2011) History of hysterectomy (~11/2019) Family History Mother Hypertension Hyperlipidemia Grandmother Cancer History of heart disease Social History household members: spouse Smoking Status: Never smoker alcohol intake: current Meds Home Medications and Allergies Home Medications Medication Instructions Recorded Confirmed Type sumatriptan 5 mg/actuation nasal 5 mg intranasal Q2-4H PRN migraine 10/09/21 06/13/24 Rx spray (Imitrex) headache #6 ea estradiol 0.05 mg/24 hr weekly 1 patch transdermal 2XW 07/11/22 06/13/24 History transdermal patch escitalopram oxalate 10 mg tablet 10 mg PO DAILY 90 days #90 tabs 03/21/24 06/13/24 Rx Allergies Allergy/AdvReac Type Severity Reaction Status Date / Time Penicillins Allergy Severe Reaction Verified 06/13/24 14:52 as an hydrocodone [From Vicodin] Allergy Intermediate itchy skin Verified 06/13/24 14:52 diphenhydramine AdvReac Severe It knocks Verified 06/13/24 14:52 [From Benadryl] me out immediately Exam Vital Signs (past 8 hours): - 06/14/24 06:12 06/14/24 08:00 Temperature 98.5 F 96.7 F L Pulse Rate 84 62 Respiratory Rate 18 19 Blood Pressure 134/74 128/76 Pulse Oximetry 97 98 Oxygen Flow Rate 0 0 Oxygen Delivery Method Room Air Oxygen Flow Rate 0 Const General: No acute distress Resp Effort & Inspection: normal respiratory effort GI Palpation: soft Objective Labs 06/14/24 06:24 06/14/24 06:24 Labs: Laboratory Results - last 24 hr 06/13/24 06/14/24 14:57 06:24 WBC 3.5 L 4.2 L RBC 4.89 4.69 Hgb 14.3 13.9 Hct 42.6 40.8 MCV 87.2 87.0 MCH 29.3 29.7 MCHC 33.6 34.1 RDW 13.4 13.4 Plt Count 277 269 Neut % (Auto) 58.2 57.6 Lymph % (Auto) 26.7 28.2 [place] % (Auto) 10.6 8.6 Eos % (Auto) 3.2 4.6 H Baso % (Auto) 1.3 1.0 Neut # (Auto) 2000 2400 Lymph # (Auto) 900 L 1200 [place] # (Auto) 400 400 Eos # (Auto) 100 200 Baso # (Auto) 0 0 Sodium 139 137 Potassium 4.1 3.7 Chloride 103 105 Carbon Dioxide 28 27 BUN 13 15 Creatinine 0.74 0.76 Estimated GFR > 60 > 60 BUN/Creatinine Ratio 17.6 19.7 Glucose 91 91 Calcium 9.5 9.3 Total Bilirubin 1.4 H 1.3 AST 688 H 287 H ALT 693 H 483 H Alkaline Phosphatase 176 H 151 H Total Protein 8.0 7.5 Albumin 4.7 4.2 Globulin 3.3 3.3 Albumin/Globulin Ratio 1.4 1.3 Lipase 129 Assessment & Plan Assessment and plan (1) Cholelithiasis: Qualifiers: Cholelithiasis location: gallbladder Cholecystitis presence: without cholecystitis Biliary obstruction: without biliary obstruction Qualified Code(s): K80.20 - Calculus of gallbladder without cholecystitis without obstruction Status: Acute (2) Elevated liver enzymes: Status: Acute Plan We discussed the natural history of gallstones. We discussed the risks and benefits of laparoscopic cholecystectomy with intraoperative cholangiogram and she would like to proceed. Time-Based Coding :: [TOTAL MINUTES] spent with patient and on the chart (including review of chart, obtaining history, exam, reviewing outside data, placing orders, documenting exam and treatment plan, and counseling patient) on [DATE]. Quality VTE Deep Vein Thrombosis/Pulmonary Embolism Present on Admission: No
[2024-06-14] MEDS: CEFAZOLIN 2 GM/100 ML PREMIX 100 ML IV (10:11)
--- NOTE | 2024-06-14 10:25 | SUR.OPER ---
Supine on padded OR bed, head on pillow, safety belt at thigh, left arm padded and tucked at side. Right arm secured on padded arm board <90 degrees abduction. Legs uncrossed. Padded footboard in place. Tape over blanket to secure lower legs.
[2024-06-14] MEDS: BUPIVACAINE 0.5% W/ EPI (PF) 30 ML VIAL INJ (10:42)
[2024-06-14] MEDS: iopamidoL 30 ML VIAL INJ ×2 (10:43→10:52)
[2024-06-14] MEDS: GLUCAGON,HUMAN RECOMBINANT 1 MG/ML VIAL IV (10:44)
[2024-06-14] MEDS: ACETAMINOPHEN IV 1,000 MG/100 ML VIAL 400 MG IV (10:51)
--- NOTE | 2024-06-14 11:12 | PM.OP.1 ---
Operative Date/Time/Diagnoses Date of procedure: 06/14/24 Time of procedure: 11:12 Pre-op diagnosis: Symptomatic cholelithiasis Post-op diagnosis: other (Symptomatic cholelithiasis and choledocholithiasis with common bile duct obstruction) Procedure & Clinicians Procedure: Laparoscopic cholecystectomy Intraoperative cholangiogram Laparoscopic common bile duct exploration Same procedure as scheduled: Yes Surgeon: Roberto Dodd Decision Support Analyst: [place] Uribe Anesthesia Type: General Operative Notes Procedure in detail: The patient was given preoperative antibiotic. The patient was brought to the operating room, placed on the table in the supine position. General endotracheal anesthesia was induced. The abdomen was prepped and draped. A time-out was performed. We made a 1 cm infraumbilical incision. We dissected down to the fascia using cautery. We grasped the fascia with a Brittnee clamp to elevate the abdominal wall. We scored the fascia in the midline with cautery 1 cm. We pierced the peritoneum with a Peon clamp. The Inez port was placed and the abdomen was insufflated to 15 mmHg. A 5 mm 30 degree laparoscopic was inserted. There was no evidence of any injury from the entry. Next, we placed 5 mm ports in the subxiphoid position and right upper quadrant at the midclavicular line and anterior axillary line. The patient was then positioned in reverse Trendelenburg and the table was tilted to the left. The gallbladder was grasped at the dome and retracted cephalad. We then dissected the cystic structures with a combination of hook cautery and blunt dissection. We obtained a critical view. Next, a cholangiogram was performed using the 6 Serbian ureteral catheter. There was good filling of the hepatic duct and common duct but there was a stone lodged in the distal common bile duct precluding contrast flow into the duodenum. We administered glucagon and waited 3 minutes. We flushed saline into the biliary system and repeated the cholangiogram with no improvement. We then advanced the 6 Serbian ureteral catheter under fluoroscopy down to the distal common bile duct stone. The catheter initially passed alongside the stone into the duodenum without dislodging the stone. We hold the catheter back above the stone and advanced it again and this time were able to push the stone into the duodenum. We then performed a completion cholangiogram which showed good flow into the duodenum with no obstruction. We then placed hemoclips on the cystic duct and artery and divided the cystic duct and artery sharply between the clips. The gallbladder was then dissected off the liver and placed in a specimen retrieval bag. We irrigated the right upper quadrant and all the aspirate returned clear. We then removed the 5 mm ports under direct vision we removed the Inez port. We then injected some local into the fascia and closed the fascia with 2 interrupted 0 Vicryl sutures. The skin incisions were closed with 4 Monocryl and Steri-Strips were applied. Band-Aids were applied over the Steri-Strips. EBL: 10 mL Specimen: Gallbladder [place] KEBEDE provided assistance with exposure, retraction and closure of incisions. Post-operative Condition: stable Disposition: PACU
--- NOTE | 2024-06-14 11:49 | PC.NURSE ---
Addendum entered by Ghislaine Delaney R.N. 06/14/24 13:36: Patient back from surgery at 1300, She has 4 bandaide incisions to her abdomen that are all cdi, patient had zofran x2 down in pacu, fentanyl, vistaril, and some ativan. She is sleeping soundly. Original Note: Patient down to surgery around 0915
[2024-06-14] MEDS: fentaNYL 100 MCG/2 ML INJ IV ×4 (11:51→12:28)
[2024-06-14] MEDS: ONDANSETRON 4 MG/2 ML INJ IV ×2 (11:57→12:16)
[2024-06-14] MEDS: hydrOXYzine 50 MG/ML INJ 25 MG IM (12:16)
[2024-06-14] MEDS: LORazepam 2 MG/ML INJ 0.25 MG IV (12:38)
--- NOTE | 2024-06-14 12:56 | SUR.PHASEI ---
Report called to Ghislaine
--- NOTE | 2024-06-14 13:07 | SUR.PHASEI ---
Patient transferred to the floor. Bedside report given to Ghislaine. BRENNAN orellana. Abdominal dressings CDI x4.
[2024-06-14] MEDS: OXYCODONE IR 5 MG TABLET PO ×2 (16:29→20:45)
[2024-06-14] MEDS: DOCUSATE 100 MG CAPSULE PO (22:45)
[2024-06-14] MEDS: SODIUM CHLORIDE 0.9% FLUSH 10 ML IV (22:47)
[2024-06-14] MEDS: OXYCODONE IR 10 MG TABLET PO (23:53)
[2024-06-15] MEDS: OXYCODONE IR 5 MG TABLET PO ×2 (05:10→09:52)
--- NOTE | 2024-06-15 08:33 | CM.DANOTE ---
Initial DCP Assessment Visit Note Reviewed EMR and team rounds for pt's medical status and updates. Met with pt at bedside to introduce self and role, pt was found to be sitting upright in bed, still somewhat groggy, but able to discuss d/c preferences and needs. Pt lives independently in her own home w/spouse and her elderly parents, for whom she cares for. Her will be transporting her home. Per her request, this S[employer] SUPERVISOR did provide her with a medical priority boarding pass for her return home. Payor: Gregoria Briceño Attending: Dr. Dodd Pt is a 54-year old F who presented to the ED 2-days ago with right upper quadrant pain, nausea, and vomiting. She had previously received an ultrasound in October which showed numerous gallstones, without cholecystitis. Surgery was consulted, CT was negative for chlecystitis, however she was symptomatic and so the plan was made for gallbladder removal. This surgery was completed yesterday, she is post-op day 1 and doing well postoperatively. She declines any further DCP assistance or needs at this time. Discharge Planning/Care Management Advanced directive, confirm from FAMILY Start: 06/13/24 22:24 Freq: Q24H Status: Active Protocol: Document 06/14/24 22:24 MP (Rec: 06/14/24 22:36 MP [id number]) Advance Directive, confirm on record Time 22:24 Person contacted pt. Copy received No CM Discharge Assessment Start: 06/15/24 08:32 Freq: Status: Active Protocol: Document 06/15/24 08:32 DPL (Rec: 06/15/24 08:33 DPL [id number]) Discharge Planning Assessment Assigned [employer] GIOVANNY Hunter Advance Directives? No Advance Directives on File No History Provided By Patient,Medical Record Has Patient been admitted in last 30 No days? Prior Living Arrangements House Household Members spouse Type of transporation used prior to Drives own vehicle admit Independent with ADL's Yes Is patient alert and oriented? Yes Comment N/A Caregiver for Another Yes: Elderly parents. Comment N/A Comment No anticipated d/c needs at this time. Discharge Plan Home Transportation Arrangement Family Referrals Initiated None needed Whiteboard Updated in Patient Room with Yes name and ext. # of [employer] Review Status In Process Please Provide Date Initial DC 06/15/24 Assessment Was Performed
[2024-06-15] MEDS: DOCUSATE 100 MG CAPSULE PO (08:36)
--- NOTE | 2024-06-15 09:00 | P.DS_ITS ---
History of Present Illness History of Present Illness Chief complaint: gallbladder pain Narrative: Rachel is a 54-year-old woman presents with symptomatic cholelithiasis. She has had postprandial right upper quadrant pain over the past year or so but it has become progressively worse frequent. She did have an ultrasound in October that showed gallstones. She develops her pain yesterday came ER were an ultrasound showed gallstones without evidence of acute cholecystitis. She would some mild elevations in her liver enzymes and an MRCP was performed which showed no obvious choledocholithiasis or bile duct obstruction. Her pancreatic enzymes have been normal. Discharge Providers Provider Date of admission: 06/13/24 20:01 Discharge Date: 06/15/24 Primary care physician: Martha Stephens PA-C Discharge provider: Roberto Dodd MD Summary Hospital Course Discharge Diagnosis: Choledocholithiasis Hospital Course: The patient underwent a laparoscopic cholecystectomy with intraoperative cholangiogram on 06/14/2024. A cholangiogram showed common bile duct obstruction and a common bile duct exploration was performed with clearance of the common bile duct. She was discharged home the following day. Exam Vital Signs (past 8 hours): Fraction of Inspired Oxygen 21 Oxygen Delivery Method Room Air Oxygen Flow Rate 0 Objective Labs 06/14/24 06:24 06/14/24 06:24 [facility] Medical History Painful menstrual periods Ovarian cyst Irregular menstrual cycle Gastric ulcer (~2018) Breast cancer (~2004) Surgical History Hx of colonoscopy Hx of breast biopsy History of bilateral oophorectomy (2020) Hx of arthroscopy of left knee Hx of arthroscopy of right knee Anesthesia History of mastectomy (2011) History of hysterectomy (~11/2019) Family History Mother Hypertension Hyperlipidemia Grandmother Cancer History of heart disease Social History household members: spouse Smoking Status: Never smoker alcohol intake: current Discharge Plan Discharge Plan Patient Disposition: Home Provider Discharge Comment: No lifting greater than 20 lb for 2 weeks. Okay to remove the outer dressing and shower after 24 hours. Steri-Strips can get wet in the shower. Remove the Steri-Strips after 5-7 days. Discharge orders & Medications Prescriptions: New oxycodone-acetaminophen 5-325 mg tablet 1 tab PO Q8H PRN (Reason: pain) Qty: 10 0RF Continued escitalopram oxalate 10 mg tablet 10 mg PO DAILY 90 Days Qty: 90 0RF estradiol 0.05 mg/24 hr patch weekly 1 patch transdermal 2XW Patient Comments: pt took off today for surgery sumatriptan [Imitrex] 5 mg/actuation spray,non-aerosol 5 mg intranasal Q2-4H PRN (Reason: migraine headache) Qty: 6 0RF Rx Instructions: into each nostril once; if headache remains, may repeat total dose once after at least 2 hours Follow up/Referrals: Martha Stephens, GURJIT [Primary Care Provider] - Visit Report/Discharge Packet Instructions: How to Prevent Falls, DI for Prescription Opioid Use, DI for Laparoscopic Cholecystectomy, [facility]: Wound Care Stand Alone Forms: Patient Portal/API, Stroke Signs & Symptoms, Surgery Discharge Discharge Data Primary Care Provider: Martha Stephens Quality VTE Deep Vein Thrombosis/Pulmonary Embolism Present on Admission: No
--- NOTE | 2024-06-15 11:06 | PC.NURSE ---
Discharge: Seen by Dr. Youssef and given d/c instructions. Feels ready to d/c. Vds w/out problems. Tolerates diet w/out problems. Dr. Youssef gave wound care instructions. Reviewed d/c packet. Questions answered. RX has been esent to [facility] [address]. They already have priority load. Discharge to home via auto w/spouse. Denied any concerns.
== END 2024-06-15 10:00 | disposition home or self-care (01) | DRG 419 ==
LOC: ED 17:24 → AC 20:46
PROVIDERS: Admitting Provider Surgery; Emergency Provider Emergency Medicine; PCP Physician Assistant Medical; Referring Provider Emergency Medicine; Visit Provider Surgery
PROC: 0FT44ZZ Resection of Gallbladder, Percutaneous Endoscopic Approach (ICD-10-PCS; CPT 47562; principal; 2024-06-14 09:15)
DX: K80.71 Calculus of gallbladder and bile duct without cholecystitis with obstruction (principal); R74.01 Elevation of levels of liver transaminase levels; F41.9 Anxiety disorder, unspecified; F32.A Depression, unspecified; E66.9 Obesity, unspecified; Z68.33 Body mass index [BMI] 33.0-33.9, adult
CPT/HCPCS: 36415; 47564; 74183; 74300; 76000; 76705; 80053; 81003; 83690; 85025; 93005; 96374; 96375; 99222; 99284; 99285; A9579; J0136; J0690; J1610; J1885; J2060; J2250; J2270; J2405; J3010; J3410; Q9967

== ENCOUNTER 2024-06-18 17:26 | Emergency (ER) | payer OTHER, SELFPAY ==
[2024-06-13 21:54] VITALS: BMI 33.9
[2024-06-18] VITALS (9 sets, daily range): BP systolic 135–172; BP diastolic 75–81; PULSE 80–91; RESP 16–32; TEMP 36.6–37.3; O2SAT 91–97; BMI 33.9
[2024-06-18] MEDS: ONDANSETRON 4 MG/2 ML INJ (17:38)
--- NOTE | 2024-06-18 18:15 | DI.CT.S_ITS ---
PROCEDURE: CT ABDOMEN PELVIS W CON INDICATIONS: And lap nany with increased pain TECHNIQUE: After the administration of intravenous contrast, axial sections acquired from the lung bases to the pubic symphysis. Coronal and sagittal reformats were performed. For radiation dose reduction, the following was used: automated exposure control, adjustment of mA and/or kV according to patient size. COMPARISON: [facility], MR, MR AB PANCREATIC/MRCP PROTOCOL, 06/13/2024, 17:55. FINDINGS: Image quality: Diagnostic Lower chest: Bibasilar atelectasis and [id number] opacities. Small amount of fluid is seen in the distal esophagus, nonspecific. Liver: No solid mass. Gallbladder and biliary system: Moderate edema, and mild fluid is seen at the cholecystectomy bed, with fluid seen just inferior to liver. Mildly prominent biliary tree post cholecystectomy. Pancreas: No ductal dilation Spleen: Nonenlarged Adrenals: No discrete nodules Kidneys: No solid mass or hydronephrosis Vessels and lymph nodes: The main portal vein appears patent. No abdominal aortic aneurysm. No pathologic lymph nodes by size criteria. Bowel and peritoneum: No evidence of small bowel obstruction. Overall moderate fecal loading. There is a small amount pelvic free fluid. There is also trace fluid extending along the right paracolic gutter. Body wall: Postsurgical changes. Moderate edema in the right body wall. No rim enhancing collection Pelvis: Bladder is unremarkable. Uterus is absent. Bones: Degenerative changes, no acute or suspicious osseous finding. IMPRESSION: Moderate edema around the cholecystectomy bed. Mild fluid is seen along the right paracolic gutter. Small amount of fluid is seen in the pelvis. Findings may be postsurgical. Sterility indeterminate on imaging. Differential includes bile peritonitis. Moderate body wall edema, without drainable fluid collection, along the right mid abdomen. Other findings above. Dictated by: Rasheed Longo M.D. on 06/18/2024 at 19:39 Approved by: Rasheed Longo M.D. on 06/18/2024 at 19:49
[2024-06-18 18:19] LABS: Add Manual Diff / Slide Review NO; Basophils Absolute Auto 0 /uL (0-100); Basophils Percent Auto 0.2 % (0-2); Eosinophils Absolute Auto 500 /uL (0-450); Eosinophils Percent Auto 5.1 % (2-4); Hematocrit 42.4 % (36-46); Hemoglobin 14.6 g/dL (12.0-16.0); Lymphocytes Absolute Auto 1300 /uL (1100-4500); Lymphocytes Percent Auto 13.3 % (25-40); Mean Corpuscular HGB Conc 34.5 % (30-36); Monocytes Absolute Auto 900 /uL (0-900); Monocytes Percent Auto 9.3 % (3-14); Neutrophils Absolute Auto 7100 /uL (1500-7000); Neutrophils Percent Auto 72.1 % (50-75); Platelet Count 300 X10^3/uL (150-400); Red Blood Cell Count 4.87 X10^6/uL (4.0-5.2); Red Cell Distribution Width 13.2 % (11.6-14.8); White Blood Cell Count 9.8 X10^3/uL (4.5-11.0)
[2024-06-18 18:22] LABS: HEMOLYSIS < 15 (0-50); Sodium 134 mmol/L (137-145)
[2024-06-18] MEDS: HYDROMORPHONE 1 MG INJ IV (18:22)
[2024-06-18 18:24] LABS: Albumin 4.4 g/dL (3.5-5.0); Albumin Globulin Ratio 1.2 (1.0-2.8); Alkaline Phosphatase 162 U/L (38-126); Aspartate Aminotransferase 33 IU/L (14-36); BUN Creatinine Ratio 17.6 (6-22); Bilirubin Total 1.6 mg/dL (0.2-1.3); Blood Urea Nitrogen 13 mg/dL (7-17); Carbon Dioxide 27 mmol/L (22-32); Chloride 104 mmol/L (98-107); Estimated Glomerular Filt Rate > 60 mL/min (>60); Globulin 3.7 g/dL (1.7-4.1); Glucose 113 mg/dL (70-100); Potassium 3.9 mmol/L (3.4-5.1); Total Protein 8.1 g/dL (6.3-8.2)
[2024-06-18 18:25] LABS: Alanine Aminotransferase 197 IU/L (<35); Calcium 9.8 mg/dL (8.4-10.2); Lipase 49 U/L (23-300)
[2024-06-18] MEDS: SODIUM CHLORIDE 0.9% 1,000 ML 125 ML IV (18:27)
[2024-06-18] MEDS: LORazepam 2 MG/ML INJ 1 MG IV (18:46)
--- NOTE | 2024-06-18 19:12 | ED.GENADULT ---
HPI - General Adult General Chief complaint: Abdominal Pain Stated complaint: abd pain sp gall bladder surgery Time Seen by Provider: 06/18/24 17:52 Source: patient Mode of arrival: EMS Limitations: no limitations History of Present Illness HPI narrative: Patient is a 54-year-old female. Earlier this week she underwent a laparoscopic cholecystectomy with an intraoperative cholangiogram. Is discharged home on Thursday of this week. She returns to emergency department today because of increasing abdominal discomfort. She was sent home with pain medication. She states she has been taking the oxycodone 1 tablet 2 times a day. She stated that she was trying to limit the amount that she was taken because of issues with constipation related to taking this medicine. She denies any fevers. She states that the pain that she was having now has been the postoperative pain that she has been having but it was just worse. She also reports issues with urination. No fevers. Pain is in the upper abdomen. She did receive fentanyl by EMS prior to arrival. Related Data Home Medications Medication Instructions Recorded Confirmed estradiol 0.05 mg/24 hr weekly 1 patch transdermal 2XW 07/11/22 06/13/24 transdermal patch Previous Rx's Medication Instructions Recorded sumatriptan 5 mg/actuation nasal 5 mg intranasal Q2-4H PRN migraine 10/09/21 spray (Imitrex) headache #6 ea escitalopram oxalate 10 mg tablet 10 mg PO DAILY 90 days #90 tabs 03/21/24 oxycodone-acetaminophen 5 mg-325 1 tab PO Q8H PRN pain #10 tabs 06/15/24 mg tablet cyclobenzaprine 10 mg tablet 10 mg PO TID PRN muscle spasm #12 06/18/24 tabs lorazepam 1 mg tablet (Ativan) 1 mg PO TID PRN anxiety #10 tabs 06/18/24 ondansetron 4 mg disintegrating 4 mg PO Q6H PRN nausea and 06/18/24 tablet vomiting #14 tabs oxycodone-acetaminophen 5 mg-325 1 tab PO Q4-6H PRN pain #10 tabs 06/18/24 mg tablet Allergies Allergy/AdvReac Type Severity Reaction Status Date / Time Penicillins Allergy Severe Anaphylaxis Verified 06/14/24 16:35 hydrocodone [From Vicodin] Allergy Intermediate itchy skin Verified 06/13/24 14:52 diphenhydramine AdvReac Severe It knocks Verified 06/13/24 14:52 [From Benadryl] me out immediately ibuprofen AdvReac Gastrointestinal Verified 06/18/24 17:37 Upset Review of Systems Review of Systems ROS Unobtainable: All systems reviewed & are unremarkable except as noted in HPI and below Patient History Medical History Painful menstrual periods Ovarian cyst Irregular menstrual cycle Gastric ulcer (~2018) Breast cancer (~2004) Surgical History Hx of colonoscopy Hx of breast biopsy History of bilateral oophorectomy (2020) Hx of arthroscopy of left knee Hx of arthroscopy of right knee Anesthesia History of mastectomy (2011) History of hysterectomy (~11/2019) Family History Mother Hypertension Hyperlipidemia Grandmother Cancer History of heart disease Social History household members: spouse Smoking Status: Never smoker alcohol intake: current Smoking Status: Never smoker alcohol intake frequency: a few times a month Substance Use Type: marijuana Exam Initial Vital Signs Initial Vital Signs: Vital Signs Temperature 99.1 F 06/18/24 17:27 Pulse Rate 83 06/18/24 17:27 Respiratory Rate 16 06/18/24 17:27 Blood Pressure 172/81 H 06/18/24 17:27 Pulse Oximetry 94 06/18/24 17:27 Oxygen Delivery Method Room Air 06/18/24 17:27 Const General: cooperative and No ill appearing HENOH Head: normal to inspection and normocephalic Resp Effort & Inspection: normal respiratory effort Auscultation: clear to auscultation bilaterally Cardio Rate: regular rate Rhythm: regular rhythm GI Inspection: non-distended Palpation: soft and tender Skin Other: Surgical incisions anterior abdomen appear well. Extrem General: normal to inspection and capillary refill normal Course Orders Ordered: ED Orders 06/18/24 17:35 Complete Blood Count AUTO DIFF Stat Comprehensive Metabolic Panel Stat Lipase Stat 06/18/24 18:15 CT abdomen pelvis w con Stat Discontinued Medications Cyclobenzaprine HCl (Cyclobenzaprine 10 Mg Prepack) 1 bottle MISC DIRECTED ONE Stop: 06/18/24 21:04 Last Admin: 06/18/24 21:25 Dose: 1 bottle Documented By: Hydromorphone HCl (Hydromorphone 1 Mg Inj) 1 mg IV NOW ONE Stop: 06/18/24 18:16 Last Admin: 06/18/24 18:22 Dose: 1 mg Documented By: THAI Sodium Chloride (Normal Saline 0.9%) 1,000 mls @ 125 mls/hr IV CONT DEBO Last Admin: 06/18/24 18:27 Dose: 125 mls/hr Documented By: THAI Lorazepam (Lorazepam 2 Mg/Ml Inj) 1 mg IV NOW ONE Stop: 06/18/24 18:40 Last Admin: 06/18/24 18:46 Dose: 1 mg Documented By: THAI Lorazepam (Lorazepam 0.5 Mg Tablet) 1 mg PO NOW ONE Stop: 06/18/24 20:41 Last Admin: 06/18/24 20:44 Dose: 1 mg Documented By: Ondansetron HCl (Ondansetron 4 Mg/2 Ml Inj) 4 mg IV NOW ONE Stop: 06/18/24 18:04 Last Admin: 06/18/24 18:04 Dose: Not Given Documented By: THAI Ondansetron HCl (Ondansetron 4 Mg Odt Prepack) 1 bottle MISC DIRECTED ONE Stop: 06/18/24 21:04 Last Admin: 06/18/24 21:26 Dose: 1 bottle Documented By: Oxycodone/Acetaminophen (Oxycodone/Apap 5/325 Prepack) 1 bottle MISC DIRECTED ONE Stop: 06/18/24 21:04 Last Admin: 06/18/24 21:25 Dose: 1 bottle Documented By: Vital Signs Vital signs: Vital Signs - 8 hr 06/18/24 17:27 06/18/24 17:32 06/18/24 17:32 Temperature 99.1 F Pulse Rate 83 91 H Respiratory Rate 16 Blood Pressure 172/81 H 172/81 H Pulse Oximetry 94 91 Oxygen Delivery Method Room Air 06/18/24 18:00 06/18/24 18:00 06/18/24 18:49 Temperature Pulse Rate 86 83 Respiratory Rate 32 H 24 Blood Pressure 170/78 H Pulse Oximetry Oxygen Delivery Method Room Air 06/18/24 19:00 06/18/24 19:01 06/18/24 19:01 Temperature Pulse Rate 88 90 Respiratory Rate Blood Pressure 168/81 H Pulse Oximetry 91 93 Oxygen Delivery Method 06/18/24 19:30 06/18/24 20:00 06/18/24 21:51 Temperature 98 F Pulse Rate 85 80 85 Respiratory Rate 16 Blood Pressure 135/75 Pulse Oximetry 92 91 97 Oxygen Delivery Method Room Air Medical Decision Making Medical Records Medical records reviewed: Yes I reviewed the patient's medical records. Lab Data Lab results reviewed: Yes I reviewed the patient's lab results. 06/18/24 17:35 06/18/24 17:35 Labs: Lab Results 06/18/24 Range/Units 17:35 WBC 9.8 (4.5-11.0) X10^3/uL RBC 4.87 (4.0-5.2) X10^6/uL Hgb 14.6 (12.0-16.0) g/dL Hct 42.4 (36-46) % MCV 87.0 (80-100) fL MCH 30.0 (26-34) PG MCHC 34.5 (30-36) % RDW 13.2 (11.6-14.8) % Plt Count 300 (150-400) X10^3/uL Neut % (Auto) 72.1 (50-75) % Lymph % (Auto) 13.3 L (25-40) % [place] % (Auto) 9.3 (3-14) % Eos % (Auto) 5.1 H (2-4) % Baso % (Auto) 0.2 (0-2) % Neut # (Auto) 7100 H (9533-6370) /uL Lymph # (Auto) 1300 (6055-3620) /uL [place] # (Auto) 900 (0-900) /uL Eos # (Auto) 500 H (0-450) /uL Baso # (Auto) 0 (0-100) /uL Sodium 134 L (137-145) mmol/L Potassium 3.9 (3.4-5.1) mmol/L Chloride 104 (98-107) mmol/L Carbon Dioxide 27 (22-32) mmol/L BUN 13 (7-17) mg/dL Creatinine 0.74 (0.52-1.04) mg/dL Estimated GFR > 60 (>60) mL/min BUN/Creatinine Ratio 17.6 (6-22) Glucose 113 H (70-100) mg/dL Calcium 9.8 (8.4-10.2) mg/dL Total Bilirubin 1.6 H (0.2-1.3) mg/dL AST 33 (14-36) IU/L ALT 197 H (<35) IU/L Alkaline Phosphatase 162 H (38-126) U/L Total Protein 8.1 (6.3-8.2) g/dL Albumin 4.4 (3.5-5.0) g/dL Globulin 3.7 (1.7-4.1) g/dL Albumin/Globulin Ratio 1.2 (1.0-2.8) Lipase 49 D (23-300) U/L Imaging Data CT scan - abdomen/pelvis: Radiologist's Impression: PROCEDURE: CT ABDOMEN PELVIS W CON INDICATIONS: And lap nany with increased pain TECHNIQUE: After the administration of intravenous contrast, axial sections acquired from the lung bases to the pubic symphysis. Coronal and sagittal reformats were performed. For radiation dose reduction, the following was used: automated exposure control, adjustment of mA and/or kV according to patient size. COMPARISON: [facility], MR, MR AB PANCREATIC/MRCP PROTOCOL, 06/13/2024, 17:55. FINDINGS: Image quality: Diagnostic Lower chest: Bibasilar atelectasis and [id number] opacities. Small amount of fluid is seen in the distal esophagus, nonspecific. Liver: No solid mass. Gallbladder and biliary system: Moderate edema, and mild fluid is seen at the cholecystectomy bed, with fluid seen just inferior to liver. Mildly prominent biliary tree post cholecystectomy. Pancreas: No ductal dilation Spleen: Nonenlarged Adrenals: No discrete nodules Kidneys: No solid mass or hydronephrosis Vessels and lymph nodes: The main portal vein appears patent. No abdominal aortic aneurysm. No pathologic lymph nodes by size criteria. Bowel and peritoneum: No evidence of small bowel obstruction. Overall moderate fecal loading. There is a small amount pelvic free fluid. There is also trace fluid extending along the right paracolic gutter. Body wall: Postsurgical changes. Moderate edema in the right body wall. No rim enhancing collection Pelvis: Bladder is unremarkable. Uterus is absent. Bones: Degenerative changes, no acute or suspicious osseous finding. IMPRESSION: Moderate edema around the cholecystectomy bed. Mild fluid is seen along the right paracolic gutter. Small amount of fluid is seen in the pelvis. Findings may be postsurgical. Sterility indeterminate on imaging. Differential includes bile peritonitis. Moderate body wall edema, without drainable fluid collection, along the right mid abdomen. Other findings above. MDM Narrative Medical decision making narrative: Her labs today are unremarkable. Her LFTs are improving. Review of the medical record shows that the surgery. A go well. She did have a distal common bile duct stone however this was cleared during surgery and a intraoperative cholangiogram showed a clear common bile duct. CT scan today shows what appeared to be postoperative changes. I did discuss the case with Dr. Garza on-call for General surgery who stated that patient can be discharged home with regularly scheduled follow-up. I did discuss this with the patient. Advised that she can take the pain medication more often than just twice a day. Advised that she start on a stool softener to try to help with the prevention of constipation. She also had quite a bit of anxiety here in the ER. She says that she has taken lorazepam in the past and does have a small prescription for that at home but it is an old prescription. She was able to sleep here in the emergency department. Plan will be to discharge patient home. I will refill some of her pain medication. Will provide a small prescription for lorazepam and also muscle relaxers. She was advised to continue all of the postoperative instructions given to her by the surgeon and to keep all of your scheduled medical appointments. She was given return precautions. Discharge Plan Departure Patient Disposition: Home Clinical Impression: Post-operative pain Instructions: DI for Abdominal Pain-Adult Activity Restrictions/Additional Instructions: Continue to follow all of the postoperative instructions given to you by the surgeon. Keep all of your scheduled medical appointments. Medications from today's visit were sent to [facility] here in [place]. Please take them as directed. Contact the general surgeon's office on Thursday for follow-up. Return to the emergency department for new symptoms. Prescriptions: New ondansetron 4 mg tablet,disintegrating 4 mg PO Q6H PRN (Reason: nausea and vomiting) Qty: 14 0RF cyclobenzaprine 10 mg tablet 10 mg PO TID PRN (Reason: muscle spasm) Qty: 12 0RF oxycodone-acetaminophen 5-325 mg tablet 1 tab PO Q4-6H PRN (Reason: pain) Qty: 10 0RF lorazepam [Ativan] 1 mg tablet 1 mg PO TID PRN (Reason: anxiety) Qty: 10 0RF No Action escitalopram oxalate 10 mg tablet 10 mg PO DAILY 90 Days Qty: 90 0RF oxycodone-acetaminophen 5-325 mg tablet 1 tab PO Q8H PRN (Reason: pain) Qty: 10 0RF estradiol 0.05 mg/24 hr patch weekly 1 patch transdermal 2XW Patient Comments: pt took off today for surgery sumatriptan [Imitrex] 5 mg/actuation spray,non-aerosol 5 mg intranasal Q2-4H PRN (Reason: migraine headache) Qty: 6 0RF Rx Instructions: into each nostril once; if headache remains, may repeat total dose once after at least 2 hours Referrals: Martha Stephens PA-C [Primary Care Provider] - Stand Alone Forms: Patient Portal/API
--- NOTE | 2024-06-18 19:26 | PC.NURSE ---
Assumed cares. Pt returned from CT scan. VSS. Resumed IVF. Pt reports feeling a little better from medications
[2024-06-18] MEDS: LORazepam 0.5 MG TABLET 1 MG PO (20:44)
--- NOTE | 2024-06-18 20:49 | PC.NURSE ---
Pt sitting up in bed. Reports feeling better. Medicated with Lorazepam per MD order. Wants additional info on DC. Dr Iyer notified.
[2024-06-18] MEDS: CYCLOBENZAPRINE 10 MG PREPACK 1 BOTTLE MISC (21:25)
[2024-06-18] MEDS: OXYCODONE/APAP 5/325 PREPACK 1 BOTTLE MISC (21:25)
[2024-06-18] MEDS: ONDANSETRON 4 MG ODT PREPACK 1 BOTTLE MISC (21:26)
== END 2024-06-18 21:53 | disposition home or self-care (01) ==
PROVIDERS: Emergency Provider Emergency Medicine; PCP Physician Assistant Medical
DX: G89.18 Other acute postprocedural pain (principal); R10.9 Unspecified abdominal pain
CPT/HCPCS: 74177; 80053; 83690; 85025; 96374; 96375; 99284; J1170; J2060; J2405; Q9967

== ENCOUNTER → 2024-06-23 14:34 | Outpatient (CLI) | payer OTHER, SELFPAY ==
[2024-06-23 12:23] VITALS: BMI 33.9
== END ==
PROVIDERS: PCP Physician Assistant Medical; Visit Provider Physician Assistant Medical
DX: R33.9 Retention of urine, unspecified (principal)
CPT/HCPCS: 87086

== ENCOUNTER → 2024-06-27 11:24 | Outpatient (CLI) | payer OTHER, SELFPAY ==
[2024-06-23 12:23] VITALS: BMI 33.9
[2024-06-27 20:01] LABS: Add Manual Diff / Slide Review NO; Basophils Absolute Auto 100 /uL (0-100); Basophils Percent Auto 0.9 % (0-2); Eosinophils Absolute Auto 500 /uL (0-450); Eosinophils Percent Auto 7.4 % (2-4); Hematocrit 42.6 % (36-46); Hemoglobin 14.4 g/dL (12.0-16.0); Lymphocytes Absolute Auto 1400 /uL (1100-4500); Lymphocytes Percent Auto 21.9 % (25-40); Mean Corpuscular HGB Conc 33.7 % (30-36); Mean Corpuscular Hemoglobin 29.6 PG (26-34); Mean Corpuscular Volume 87.6 fL (80-100); Monocytes Absolute Auto 300 /uL (0-900); Monocytes Percent Auto 5.4 % (3-14); Neutrophils Absolute Auto 4100 /uL (1500-7000); Neutrophils Percent Auto 64.4 % (50-75); Platelet Count 341 X10^3/uL (150-400); Red Blood Cell Count 4.86 X10^6/uL (4.0-5.2); White Blood Cell Count 6.4 X10^3/uL (4.5-11.0)
[2024-06-27 20:10] LABS: Alanine Aminotransferase 65 IU/L (<35); Albumin 4.3 g/dL (3.5-5.0); Albumin Globulin Ratio 1.3 (1.0-2.8); Alkaline Phosphatase 127 U/L (38-126); Aspartate Aminotransferase 44 IU/L (14-36); BUN Creatinine Ratio 21.6 (6-22); Bilirubin Total 0.7 mg/dL (0.2-1.3); Blood Urea Nitrogen 16 mg/dL (7-17); Calcium 9.8 mg/dL (8.4-10.2); Carbon Dioxide 26 mmol/L (22-32); Chloride 102 mmol/L (98-107); Estimated Glomerular Filt Rate > 60 mL/min (>60); Globulin 3.3 g/dL (1.7-4.1); Glucose 75 mg/dL (70-100); HEMOLYSIS 22 (0-50); Potassium 4.1 mmol/L (3.4-5.1); Sodium 137 mmol/L (137-145); Total Protein 7.6 g/dL (6.3-8.2)
== END ==
PROVIDERS: PCP Physician Assistant Medical; Visit Provider Surgery
DX: G89.18 Other acute postprocedural pain (principal)
CPT/HCPCS: 80053; 85025

== ENCOUNTER → 2025-02-22 10:23 | Outpatient (CLI) | payer OTHER, SELFPAY ==
[2024-06-23 12:23] VITALS: BMI 33.9
[2025-02-22 18:53] LABS: Add Manual Diff / Slide Review NO; Basophils Absolute Auto 0 /uL (0-100); Basophils Percent Auto 0.5 % (0-2); Eosinophils Absolute Auto 200 /uL (0-450); Eosinophils Percent Auto 3.7 % (2-4); Hematocrit 42.8 % (36-46); Hemoglobin 14.6 g/dL (12.0-16.0); Lymphocytes Absolute Auto 1200 /uL (1100-4500); Lymphocytes Percent Auto 23.3 % (25-40); Mean Corpuscular Hemoglobin 29.9 PG (26-34); Mean Corpuscular Volume 87.9 fL (80-100); Monocytes Absolute Auto 500 /uL (0-900); Monocytes Percent Auto 8.8 % (3-14); Neutrophils Absolute Auto 3300 /uL (1500-7000); Neutrophils Percent Auto 63.7 % (50-75); Platelet Count 279 X10^3/uL (150-400); Red Blood Cell Count 4.87 X10^6/uL (4.0-5.2); White Blood Cell Count 5.1 X10^3/uL (4.5-11.0)
[2025-02-22 19:11] LABS: Alanine Aminotransferase 41 IU/L (<35); Albumin 4.6 g/dL (3.5-5.0); Albumin Globulin Ratio 1.5 (1.0-2.8); Alkaline Phosphatase 99 U/L (38-126); Aspartate Aminotransferase 34 IU/L (14-36); BUN Creatinine Ratio 23.3 (6-22); Bilirubin Total 0.8 mg/dL (0.2-1.3); Blood Urea Nitrogen 17 mg/dL (7-17); Calcium 9.9 mg/dL (8.4-10.2); Carbon Dioxide 29 mmol/L (22-32); Chloride 103 mmol/L (98-107); Cholesterol 194 mg/dL (140-199); Estimated Glomerular Filt Rate > 60 mL/min (>60); Glucose 109 mg/dL (70-100); HDL Cholesterol 81 mg/dL (40-60); HEMOLYSIS < 15 (0-50); LDL Cholesterol Calculated 97 mg/dL (<100); Potassium 4.4 mmol/L (3.4-5.1); Sodium 140 mmol/L (137-145); Total Protein 7.6 g/dL (6.3-8.2); Triglycerides 82 mg/dL (35-150)
[2025-02-22 19:26] LABS: Hemoglobin A1C% w Est Avg Glu 5.3 % (4.0-6.0)
[2025-02-22 19:49] LABS: TSH w/ Reflex to FT4 3.01 uIU/mL (0.47-4.68)
== END ==
PROVIDERS: PCP Physician Assistant Medical; Visit Provider Physician Assistant Medical
DX: R74.8 Abnormal levels of other serum enzymes (principal); E66.9 Obesity, unspecified; R53.83 Other fatigue; Z13.29 Encounter for screening for other suspected endocrine disorder; Z13.0 Encounter for screening for diseases of the blood and blood-forming organs and certain disorders involving the immune mechanism; Z13.228 Encounter for screening for other metabolic disorders; E78.5 Hyperlipidemia, unspecified; R73.9 Hyperglycemia, unspecified; D64.9 Anemia, unspecified
CPT/HCPCS: 80053; 80061; 83036; 84443; 85025